=== PATIENT | female | born 1950 | race Caucasian/White ===

== ENCOUNTER 2020-03-19 14:34 | Emergency (ER) | payer MEDICARE ==
[~2020-03-19] VITALS: Ht 149.9 cm; Wt 75.3 kg
--- OUTSIDE RECORDS SUMMARY | ~2020-03-19 | XMS | Encounter Summary ---
Demographics + + + | Address | [address] | | | [place] [address] | + + + | Home Phone | | + + + | Preferred Language | Unknown | + + + | Marital Status | | + + + | Moravian Affiliation | 1001 | + + + | Race | White | + + + | Ethnic Group | Not or | + + + Author + + + | Author | [facility] | | | and [place] | + + + | Organization | [facility] | | | and [place] | + + + | Address | Unknown | + + + | Phone | Unavailable | + + + Support + + + + + | Name | Relationship | Address | Phone | + + + + + | Syed Lanman | ECON | [address] | | | | | [place] | | | | | [address] | | + + + + + Care Team Providers + +------+ + | Care Mud Engineer Name | Role | Phone | + +------+ + PCP | Unavailable | + +------+ + Encounter Details +--------+ + + + + | Date | Type | Department | Care Team | Description | +--------+ + + + + | 09/14/ | Hospital | [facility] | Ivan Blackwell, | Bilateral pulmonary | | 2012 - | Encounter | [facility] | DO [address] | embolism (HCC); | | | | CLINICAL DECISION | [place] [address] | Nonspecific ST-T | | 09/19/ | | [address] | | wave | | 2012 | | [place], [place] | | electrocardiographic | | | | [address] | | changes; Obesity, | | | | [phone] | | unspecified; Urinary | | | | | | tract infection, | | | | | | site not specified; | | | | | | Transient | | | | | | hypotension; | | | | | | Hypoxia; Elevated | | | | | | troponin; Closed | | | | | | left ankle fracture; | | | | | | Acute pulmonary | | | | | | embolism (HCC); | | | | | | Blunt head trauma; | | | | | | Hypotension, | | | | | | unspecified; Syncope | | | | | | and collapse | +--------+ + + + + Social History + +-------+ +--------+------+ | Tobacco Use | Types | Packs/Day | Years | Date | | | | | Used | | + +-------+ +--------+------+ | Never Smoker | | | | | + +-------+ +--------+------+ + + + | Sex Assigned at | Date Recorded | | | | + + + | Not on file | | + + + documented as of this encounter Discharge Summaries Marilyn Steele MD - 09/19/2012 4:29 PM PSTFormatting of this note might be different from th e original. Discharge Summaries by Marilyn Steele MD at 09/19/12 0476 Author: Marilyn Steele MD Service: Hospitalist Author Type: Physician Filed: 09/19/12 5900 Date of Service: 09/19/12 8476 Status: Signed Electrical Journeyman: Marilyn Steele MD (Physician) [facility] Service: Hospitalist Discharge Summary Date of Admission: 09/14/2012 Date of Discharge: 09/19/2012 Discharge Physician: Marilyn Steele MD Treatment Team: Consulting Physician: Anton Napoles MD Admitting Provider: Ivan Blackwell DO Discharge Diagnoses: Principal Problem: *Acute pulmonary embolism Active Problems: Hypotension, unspecified Syncope and collapse Nonspecific ST-T wave electrocardiographic changes Blunt head trauma Obesity, unspecified Urinary tract infection, site not specified Resolved Problems: * No resolved hospital problems. * Procedures: * No surgery found * CT Chest PE Protocol [[id number]] Collected:09/14/122101 Order Status:Completed Updated:09/14/122115 Narrative: LUIZ MALAVE CT CHEST PULMONARY EMBOLISM W CONTRAST 09/14/2012 8:47 PM HISTORY: 61 years. Female. Rule out pulmonary embolus TECHNIQUE: 1.5-mm axial images of the chest were acquired in the arterial phase according to a CT gaurav ography protocol. Coronal CT angiographic MIP reconstructions were performed. IV contrast: 59 mL IsoVue 370 COMPARISON: None. FINDINGS: CT ANGIOGRAM: Note: These findings were discussed with the requesting clinician in the emergency departme by telephone at 2100 hrs. The pulmonary arterial tree is well opacified. Multiple pulmonary emboli are identified as follows: There is near occluding thrombus withi n left and right main pulmonary arteries on the right there is thrombus extending into the p roximal portion of the upper and middle lobe segments with a large amount of thrombus extend ing into the lower lobe artery.. On the left the near occluding thrombus in the left main pulmonary artery with a large volu me of thrombus extending into the left lower lobe branch. 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 No dissection, aneury sm or stenosis is seen in the aorta or great vessels. No aneurysmal dilatation. No evidence of dissection. Cardiomegaly is noted. No pericardial abnormality is seen. No filling defects are seen in t he chambers of the heart to suggest clot or tumor. CT CHEST: The lungs are well aerated. No acute airspace disease, parenchymal nodule, mass, pleural ef fusion or pneumothorax is noted. No bronchiectasis is seen. The thyroid is symmetric and shows no evidence of a solid or cystic mass. No bulky adenopathy is seen in the lower karly stations of the neck, axillary regions, medi astinum or hilar regions. The thoracic esophagus is normal. No hiatal hernia is seen. The muscles of the chest are symmetric. No focal atrophy or soft tissue mass is seen. The osseous structures of the chest do not demonstrate lytic or blastic lesions. In the upper abdomen the visualized portions of the liver, spleen, pancreas, adrenal glands and kidneys are normal in size, position, contour and attenuation. No solid or cystic britni s are seen in these organs. No upper abdominal adenopathy is seen. The visualized portions o f the stomach and small bowel are normal. The patient is status post cholecystectomy. IMPRESSION: 1. Large volume of bilateral pulmonary emboli as described above. The requesting clinician is aware. Ultrasound lower extremity venous doppler bilateral [[id number]] Collected:09/15/12 0935 Orde r Status:Completed Updated:09/15/12 0953 Narrative: LUIZ MALAVE 1950 US LOWER EXTREMITY VENOUS DOPPLER BILAT 09/15/2012 8:15 AM HISTORY: Patient has a known PE with broken fibula, leg pain TECHNIQUE: Bilateral lower extremity venous Doppler performed with color Doppler and spectr al Doppler waveform analysis. COMPARISON: None. FINDINGS: The deep venous system of the right lower extremity is normal on grayscale imagin g with normal compressibility. Normal augmentation is present. The calf vessels are normal. The deep venous system of the left lower extremity is normal on grayscale imaging. In the c custodial, there appears to be absent color flow involving the posterior tibial vein which is nonc ompressible. This extends in the popliteal vein. IMPRESSION: 1. Demonstration of deep venous thrombosis involving the left popliteal vein extending into the posterior tibial. 2. Critical result: Imaging findings discussed with the nurse taking care of the patient by telephone at 9:47 a.m. This is performed within one hour of review of images. head facial without contrast [[id number]] Collected:09/15/12 1218 Order Status:Completed U pdated:09/15/12 1229 Narrative: LUIZ MALAVE CT HEAD FACIAL WO CONTRAST HISTORY: 61 years. Female. Orbit pain. TECHNIQUE: CT examination the head and face was performed without contrast. Coronal and sagittal refor matted images were obtained. COMPARISON: None. FINDINGS: No abnormal areas of increase or decrease density seen throughout the brain. No mass, hemor rhage, midline shift, or extra-axial fluid collection. Tiny mucus retention cyst within the maxillary sinuses and. Bilateral ostiomeatal units are patent. Negative for fracture. The globes are normal and symmetric in size. No intra-or extraconal mass or abnormality. IMPRESSION: 1. Negative CT head without contrast. 2. Tiny mucus retention cyst within the maxillary sinus. Performing Physician: Enrique Mendoza MD INDICATIONS Abnormal EKG CONCLUSIONS 1. Overall left ventricular systolic function is normal with, an EF between 65 - 70 %. 2. The cavity size is decreased. 3. The right ventricle is severely enlarged measuring >4.1 cm. 4. Paradoxical motion of the right ventricular septum is consistent with right ventricular overload and/or elevated right ventricular end-diastolic pressure. 5. Moderate to severe tricuspid regurgitation present. 6. The right ventricular systolic pressure (pulmonary artery systolic pressure), as measure d by Doppler, is between 31.76mmHg and 36.76mmHg. Significant Diagnostic Studies: BRIEF HISTORY OF PRESENTATION: Luiz Malave is a 61 y.o. female who presented with hypotension and found to to have bi lateral PE/left DVT ,refer to H&P and consult note for details . HOSPITAL COURSE: 1 PE: bilateral large with RV dilatation and strain/left DVT completed 5 days of bridging Therapy with heparin gtt initilaly then Lovenox subQ,continue on Coumadin INR goal 2-3 and hold if above 3. 2 positive troponins and history of CAD: appreciate help from cardiology Positi ve troponins from PE. Conservative management for now,she is now chest pain free. 3 hypertension stable.resume home metoprolol on discharge. 4 left ankle fracture: was on conservative Management prior Continue with same follow up o utpatient. 5 right knee pain and mild bruising which is improving she already has an appt with her ort hopedic coming up this week. PT recc wheel chair and walker,she was discharged home in a stable condition and all her qu estions were addrssed, she had accepted anticoagulation risks and side effects Past Medical History Diagnosis Date Hypertension Depression Old myocardial infarction Past Surgical History Procedure Date Cholecystectomy Colonoscopy Tonsillectomy No Known Allergies No prescriptions prior to admission DISCHARGE EXAM Vital Signs: BP 139/76 | Pulse 99 | Temp(Src) 97.9 F (36.6 C) (Oral) | Resp 19 | Ht 1.524 m (5') | W t 87.862 kg (193 lb 11.2 oz) | BMI 37.83 kg/m2 | SpO2 94% | ? No Temp: [97.8 F (36.6 C)-98.9 F (37.2 C)] 97.9 F (36.6 C) (09/19 702) BP: (125-192)/(68-81) 139/76 mmHg (09/19 702) Heart Rate: [97-110] 99 (09/19 702) Resp: [18-20] 19 (09/19 702) SpO2: [93 %-94 %] 94 % (09/19 702) Height: [152.4 cm (5')] 152.4 cm (5') (09/20 355) Weight: [87.862 kg (193 lb 11.2 oz)] 87.862 kg (193 lb 11.2 oz) (09/20 355) BMI (Calculated): [37.9] 37.9 (09/20 355) General appearance: alert, appears stated age and cooperative Neck: no adenopathy, no carotid bruit, no JVD, supple, symmetrical, trachea midline and thy roid not enlarged, symmetric, no tenderness/mass/nodules, neck bruise Lungs: clear to auscultation bilaterally Heart: regular rate and rhythm, S1, S2 normal, no murmur, click, rub or gallop Abdomen: soft, non-tender; bowel sounds normal; no masses, no organomegaly Extremities: extremities normal, atraumatic, no cyanosis or edema, under arm bruises and le g bruises,left ankle fracture and right knee swelling which is improving Pulses: 2+ and symmetric Neurologic: Grossly normal DATA CBC: Lab Results Component Value Date WBC 9.6 09/19/2012 RBC 3.16* 09/19/2012 HGB 9.6* 09/19/2012 HCT 30.6* 09/19/2012 MCV 96.8 09/19/2012 MCH 30.4 09/19/2012 MCHC 31.4* 09/19/2012 RDW 48.1 09/19/2012 PLT 221 09/19/2012 MPV 9.1 09/19/2012 DIFFTYPE AUTOMATED 09/19/2012 CMP: Lab Results Component Value Date NA 143 09/19/2012 K 4.3 09/19/2012 CL 107 09/19/2012 CO2 26 09/19/2012 ANIONGAP 15 09/19/2012 GLUF 82 09/19/2012 BUN 8 09/19/2012 CREATININE 0.98 09/19/2012 BCR 8 09/19/2012 CA 7.9* 09/19/2012 PROT 5.8* 09/15/2012 ALB 2.9* 09/15/2012 BILITOT 0.9 09/15/2012 ALP 101 09/15/2012 AST 137* 09/15/2012 ALT 105* 09/15/2012 EGFR >60 09/19/2012 PT/INR: Lab Results Component Value Date INR 2.2 09/19/2012 Disposition: Home Condition: Stable Code Status: Full Code Discharge Instructions Protime-INR Standing Status: Future Standing Exp. Date: 09/19/13 Ambulatory referral to Anticoagulation Monitoring Referral Priority: Routine Referral Type: Consultation Referral Reason: Specialty Services Required Number of Visits Requested: 1 Diet cardiac Diet low sodium Activity as tolerated Call MD for: temperature >100.4 Call MD for: persistant nausea and vomiting Call MD for: severe uncontrolled pain Call MD for: redness, tenderness, or signs of infection (pain, swelling, redness, odor or green/yellow discharge around incision site) Call MD for: hives Call MD for: difficulty breathing, headache or visual disturbances Call MD for: persistant dizziness or light-headedness Call MD for: extreme fatigue Follow up: Beverly Cardenas, [facility] [address] [address] Schedule an appointment as soon as possible for a visit in 1 week Discharge Medication List as of 09/19/2012 12:08 PM START taking these medications Details omeprazole (PRILOSEC) 20 MG capsule Take 1 capsule by mouth every morning before breakfast ., Starting 09/19/2012, Until Tue09/19/13, Print warfarin (COUMADIN) 5 MG tablet Take 1 tablet by mouth Once daily-Coumadin., Starting 2012, Until Tue09/19/13, Print CONTINUE these medications which have NOT CHANGED Details fluoxetine (PROZAC) 20 MG tablet Take 20 mg by mouth daily. , Until Discontinued, Histori dana Med metoprolol (TOPROL-XL) 50 MG 24 hr tablet Take 50 mg by mouth daily. , Until Discontinued , Historical Med STOP taking these medications aspirin 81 MG EC tablet Comments: Reason for Stopping: famotidine (PEPCID) 10 MG tablet Comments: Reason for Stopping: Discharge took over 30 minutes, to include final examination, discussion of admission, and preparation of prescriptions, instructions for on-going care, follow-up and documentation of discharge summary. Marilyn Steele MD @td documented in this encou nter Progress Notes Conversion Transaction, Provider Unknown - 09/19/2012 10:43 AM PSTFormatting of this note m ight be different from the original. Progress Notes by Guido Cabrera RRT at 09/19/12 104 Author: Guido Cabrera RRT Service: (none) Author Type: Registered Respiratory Therapi st Filed: 09/19/12 1044 Date of Service: 09/19/121042 Status: Signed Electrical Journeyman: Guido Cabrera RRT (Registered Respiratory Therapist) [facility] Department of Respiratory Jail Oxygen Evaluation (Evaluation is valid for 48 hours once completed) Date: 09/19/2012 RT: Guido Cabrera Time: 10:44 AM Home O2 Eval at rest-Part 1 At rest & breathing room air is the patients SpO2 88% or lower? : No Lowest observed SpO2 at rest: 96 percent Home O2 Eval during exercise-Part 2 With exercise & breathing room air is the patients SpO2 88% or lower? : No Lowest observed SpO2 with exercise: 92 percent HOME OXYGEN PROVIDER PREFERENCE PHONE FAX *NOTE* Provider must include liter flow, route of oxygen administration, frequency of use w ith duration of need in months on the prescription AND document patient s diagnosis. OXYGEN PRN IS NOT A VALID ORDER Physician Signature: Date: Time: onver leatha Transaction, Provider Unknown - 09/19/2012 6:26 AM PST Progress Notes by Winifred Roque RN at 09/19/1226 Author: Winifred Roque RN Service: (none) Author Type: Registered Nurse Filed: 09/19/12 0628 Date of Service: 09/19/12625 Status: Signed Electrical Journeyman: Winifred Roque RN (Registered Nurse) VSS. Pt rested through the night. Tolerated sleeping without needing any O2. Pain needs wel l managed by giving the Ultram and Tylenol at different times so she was getting pain medica tions more regularly. She states that her pain has stayed under a 4/10 all night. Uses the B SC with a standby assist. No other acute changes from the previous assessment. Winifred Roque RN 6:28 AM 09/19/2012 onver leatha Transaction, Provider Unknown - 09/18/2012 6:30 PM PST Progress Notes by Maria Esther Woodward RN at 09/18/121829 Author: Maria Esther Woodward RN Service: (none) Author Type: Registered Nurse Filed: 09/18/121830 Date of Service: 09/18/121829 Status: Signed Electrical Journeyman: Maria Esther Woodward RN (Registered Nurse) VSS, afebrile, pt completley weaned from O2. No acute changes, will continue to monitor.EDITH WOODWARD RN Marilyn Mendoza MD - 09/18/2012 4:43 PM PSTFormatting of this note might be different from the origi nal. Progress Notes by Marilyn Steele MD at 09/18/12 164 Author: Marilyn Steele MD Service: Hospitalist Author Type: Physician Filed: 09/18/121648 Date of Service: 09/18/121642 Status: Addendum Electrical Journeyman: Marilyn Steele MD (Physician) Related Notes: Original Note by Marilyn Steele MD (Physician) filed at 09/18/121648 [facility] Service: Hospitalist Progress Note Hospital Day: LOS: 4 days Post-Op Day: * No surgery found * SUBJECTIVE Patient Summary: refer to H&P and previous prog notes Events Overnight: Pt seen and examined,still tachycardic when laying in bed and has e xertional SOB , no signs of active bleeding Scheduled Medications enoxaparin 1 mg/kg Subcutaneous Q12H FLUoxetine 20 mg Oral Daily heparin lock flush omeprazole 20 mg Oral QAM AC potassium chloride 40 mEq Oral Daily with breakfast warfarin 5 mg Oral Daily DISCONTD: cephALEXin 500 mg Oral Q12H DISCONTD: ciprofloxacin 500 mg Oral BIDQ DISCONTD: heparin (porcine) 80 Units/kg Intravenous Once Continuous Infusions PRN Medications acetaminophen, acetaminophen, traMADol OBJECTIVE Vital Signs: BP 135/67 | Pulse 107 | Temp(Src) 97.8 F (36.6 C) (Oral) | Resp 20 | Ht 1.499 m (4' 11" ) | Wt 92.9 kg (204 lb 12.9 oz) | BMI 41.37 kg/m2 | SpO2 93% | ? No Temp: [97.8 F (36.6 C)-98.5 F (36.9 C)] 97.8 F (36.6 C) (09/18 1504) BP: (121-140)/(61-71) 135/67 mmHg (09/18 1504) Heart Rate: [92-110] 107 (09/18 1504) Resp: [20] 20 (09/18 1504) SpO2: [93 %-96 %] 93 % (09/18 1504) Weight: [92.9 kg (204 lb 12.9 oz)] 92.9 kg (204 lb 12.9 oz) (09/17 2017) General appearance: alert, appears stated age and cooperative Neck: no adenopathy, no carotid bruit, no JVD, supple, symmetrical, trachea midline and thy roid not enlarged, symmetric, no tenderness/mass/nodules, neck bruise Lungs: clear to auscultation bilaterally Heart: regular rate and rhythm, S1, S2 normal, no murmur, click, rub or gallop Abdomen: soft, non-tender; bowel sounds normal; no masses, no organomegaly Extremities: extremities normal, atraumatic, no cyanosis or edema, under arm bruises and le g bruises,left ankle fracture and right knee swelling which is improving Pulses: 2+ and symmetric Neurologic: Grossly normal DATA CBC: Lab Results Component Value Date WBC 8.4 09/18/2012 RBC 3.09* 09/18/2012 HGB 9.3* 09/18/2012 HCT 29.7* 09/18/2012 MCV 96.2 09/18/2012 MCH 30.3 09/18/2012 MCHC 31.5* 09/18/2012 RDW 45.5 09/18/2012 PLT 175 09/18/2012 MPV 9.0 09/18/2012 DIFFTYPE AUTOMATED 09/18/2012 CMP: Lab Results Component Value Date NA 143 09/18/2012 K 3.4* 09/18/2012 CL 108 09/18/2012 CO2 26 09/18/2012 ANIONGAP 12 09/18/2012 GLUF 89 09/18/2012 BUN 10 09/18/2012 CREATININE 0.93 09/18/2012 BCR 11 09/18/2012 CA 8.0* 09/18/2012 PROT 5.8* 09/15/2012 ALB 2.9* 09/15/2012 BILITOT 0.9 09/15/2012 ALP 101 09/15/2012 AST 137* 09/15/2012 ALT 105* 09/15/2012 EGFR >60 09/18/2012 Lab Results Component Value Date INR 3.0 09/18/2012 INR 1.8 09/17/2012 INR 1.3 09/16/2012 urine cx <10,000 CFU/ML MIXED GRAM POSITIVE AND GRAM NEGATIVE RENE NO SUSCEPTIBILITY TO FO LLOW PROBLEM LIST Principal Problem: *Acute pulmonary embolism Active Problems: Hypotension, unspecified Syncope and collapse Nonspecific ST-T wave electrocardiographic changes Blunt head trauma Obesity, unspecified Urinary tract infection, site not specified ASSESSMENT & PLAN 1 PE: bilateral large with RV dilatation and strain, . Will c/w Lovenox and continued Couma din. Due to high volume PE, we'll keep the patient in hospital until INR complete therapeuti c and the plan for at least 5 days of Lovenox bridging. 2 positive troponins and history of CAD: appreciate help from cardiology. Positive troponin s from PE. Conservative management for now. 3 hypertension stable. Holding BP meds for now as was hypotensive on presentation. 4 left ankle fracture: was on conservative Management. Continue with same followup outpatie nt. 5 right knee pain and mild bruising if any worsening will consult ortho inpatient. 6 UTI: dc abx urine cx suggest contamination 7GI px PPI Hypokalemia replete orally Plan on dc in AM Disposition: Admitted Code Status: Full Code Marilyn Steele MD 09/18/2012 onversion Transaction, Provider Unknown - 09/18/2012 4:39 PM PSTFormatting of this note might be different from darío jacobs original. Progress Notes by CHICHO Arellano at 09/18/12 7659 Author: CHICHO Arellano Service: (none) Author Type: V Belt Builder Filed: 09/18/12 1640 Date of Service: 09/18/12 4850 Status: Signed Electrical Journeyman: CHICHO Arellano (V Belt Builder) CM followed up with [facility] for INR following with patient's PCP: IVANA Ulrich. They agreed to do the following and an appointment has been scheduled for , M arch 7 at 2.00 PM with Labs prior. onver leatha Transaction, Provider Unknown - 09/18/2012 12:54 PM PST Progress Notes by Karie Jiang RN at 09/18/12 1258 Author: Karie Jiang RN Service: (none) Author Type: Registered Nurse Filed: 09/18/12 1490 Date of Service: 09/18/121253 Status: Signed Electrical Journeyman: Karie Jiang RN (Registered Nurse) Visited patient for coumadin education. Discussed her indications for coumadin and need for compliance. Emphasized importance of inr monitoring. Discussed potential food/medication in teractions. Education booklet given. She is from [place] and will need discharge plan clos e to home. CM referral made. Karie Jiang RN a/c onver leatha Transaction, Provider Unknown - 09/18/2012 5:34 AM PST Progress Notes by Elsa Hemphill RN at 09/18/12 0534 Author: Elsa Hemphill RN Service: (none) Author Type: Registered Nurse Filed: 09/18/12 0536 Date of Service: 09/18/12 0534 Status: Signed Electrical Journeyman: Elsa Hemphill RN (Registered Nurse) No changes from assessment. Pt.'s pain is well controlled with the ultram. Vital signs ar e stable. Will continue monitor. onver leatha Transaction, Provider Unknown - 09/17/2012 7:35 PM PST Progress Notes by Maria Esther Woodward RN at 09/17/12 6234 Author: Maria Esther Woodward RN Service: (none) Author Type: Registered Nurse Filed: 09/17/121938 Date of Service: 09/17/121934 Status: Signed Electrical Journeyman: Maria Esther Woodward RN (Registered Nurse) VSS, afebrile, pt weaned to 0.5 liter O2 via nasal cannula. PT is having increased discomfo rt in legs and arms r/t to fall, pt requests pain medication with no sedative effect. Receiv ed new orders from MD for Ultram, Will continue to monitor.MARIA ESTHER WOODWARD RN onver leatha Transaction, Provider Unknown - 09/17/2012 2:56 PM PST Progress Notes by CHICHO Seras at 09/17/12 3286 Author: CHICHO Sears Service: (none) Author Type: V Belt Builder Filed: 09/17/12 1501 Date of Service: 09/17/121455 Status: Signed Electrical Journeyman: CHICHO Sears (V Belt Builder) LOAN UNDERWRITER met w/ Pt for DCP. Pt resides in [place], will be going home with Coumadin, this is n ew, Pt needs to find a doctor to follow. Pt has PCP Beverly HEATH [phone] ph at the [facility] [place], they are not open on Sundays, needs p/c on Monday 09/18, if they will follow. Pt is on nasal cannula oxygen, this is new, if she needs it, she would prefer [facility] [place] phone for home oxygen. Pt states Pt parents (Zachariah Reyes [phone]) will transport Pt home when ready. onver leatha Transaction, Provider Unknown - 09/17/2012 12:46 PM PST Progress Notes by Maria Esther Woodward RN at 09/17/12 8676 Author: Maria Esther Woodward RN Service: (none) Author Type: Registered Nurse Filed: 09/17/12 1248 Date of Service: 09/17/12 1246 Status: Signed Electrical Journeyman: Maria Esther Woodward, RN (Registered Nurse) Pt provided with coumadin and Lovenox written information.MARIA ESTHER WOODWARD RN Ty Wu MD - 09/17/2012 11:05 AM PSTFormatting of this note might be different from the origi nal. Progress Notes by Ty Rizo MD at 09/17/12 1105 Author: Ty Rizo MD Service: (none) Author Type: Physician Filed: 09/17/12 1110 Date of Service: 09/17/12 1105 Status: Signed Electrical Journeyman: Ty Rizo MD (Physician) [facility] Service: Hospitalist Progress Note Hospital Day: LOS: 3 days Consultants: Treatment Team: Consulting Physician: Anton Napoles MD Admitting Provider: Ivan Blackwell DO SUBJECTIVE Events Overnight: *feels okay this morning, mild chest pain on deep breathing but oth erwise able to ambulate somewhat. Scheduled Medications ciprofloxacin 500 mg Oral BIDQ enoxaparin 1 mg/kg Subcutaneous Q12H FLUoxetine 20 mg Oral Daily heparin (porcine) 80 Units/kg Intravenous Once omeprazole 20 mg Oral QAM AC sodium phosphate 30 mmol Intravenous Once warfarin 5 mg Oral Daily Continuous Infusions PRN Medications acetaminophen, acetaminophen OBJECTIVE Vital Signs: BP 119/58 | Pulse 90 | Temp(Src) 98.2 F (36.8 C) (Oral) | Resp 18 | Ht 1.499 m (4' 11") | Wt 94.8 kg (208 lb 15.9 oz) | BMI 42.21 kg/m2 | SpO2 98% Filed Vitals: 09/16/12 1954 09/16/12 2356 09/17/12 0424 09/17/12 0709 BP: 114/58 107/50 130/59 119/58 Pulse: 93 93 90 90 Temp: 98.1 F (36.7 C) 97.8 F (36.6 C) 97.9 F (36.6 C) 98.2 F (36.8 C) TempSrc: Oral Oral Oral Oral Resp: 20 20 20 18 Height: Weight: 94.8 kg (208 lb 15.9 oz) SpO2: 95% 97% 98% 98% Intake/Output Summary (Last 24 hours) at 09/17/12 1105 Last data filed at 09/17/12 1027 Gross per 24 hour Intake 545.56 ml Output 1100 ml Net -554.44 ml General: Well nourished. Psych: Alert and oriented x 3. Calm, cooperative. Cardiovascular: Regular rate and rhythm, no murmurs, no thrills. Normal PMI. Respiratory: Clear to auscultation, no wheezing or crackles, breathing non labored. Gastrointestinal: Soft, non-tender, non-distended, positive bowel sounds. No HSM. Musculoskeletal: right knee swelling and mild edema. Left ankle tenderness. No edema in bi lateral lower extremities. No joint swelling. Skin: bruising of the chin and left side of tongue. Warm and dry, no rashes. Neck: No JVD, Trachea midline. Neurological: Non focal. Motor grossly intact. DATA CBC: Lab Results Component Value Date WBC 12.5* 09/17/2012 RBC 3.34* 09/17/2012 HGB 10.3* 09/17/2012 HCT 32.2* 09/17/2012 MCV 96.4 09/17/2012 MCH 30.9 09/17/2012 MCHC 32.0 09/17/2012 RDW 48.1 09/17/2012 PLT 200 09/17/2012 MPV 9.1 09/17/2012 DIFFTYPE AUTOMATED 09/17/2012 CMP: Lab Results Component Value Date NA 143 09/17/2012 K 3.7 09/17/2012 CL 110* 09/17/2012 CO2 23 09/17/2012 ANIONGAP 13 09/17/2012 GLUF 94 09/17/2012 BUN 13 09/17/2012 CREATININE 1.03* 09/17/2012 BCR 13 09/17/2012 CA 8.1* 09/17/2012 PROT 5.8* 09/15/2012 ALB 2.9* 09/15/2012 BILITOT 0.9 09/15/2012 ALP 101 09/15/2012 AST 137* 09/15/2012 ALT 105* 09/15/2012 EGFR 58* 09/17/2012 Magnesium: Lab Results Component Value Date MG 2.0 09/17/2012 Phosphorus: Lab Results Component Value Date PHOS 1.9* 09/17/2012 PT/INR: Lab Results Component Value Date INR 1.8 09/17/2012 PTT: Lab Results Component Value Date APTT >240* 09/16/2012 [APTT PROBLEM LIST Principal Problem: *Acute pulmonary embolism Active Problems: Hypotension, unspecified Syncope and collapse Nonspecific ST-T wave electrocardiographic changes Blunt head trauma Obesity, unspecified ASSESSMENT/ PLAN 61-year-old female admitted for chest pain found to have bilateral large PE, admitted to U now transfer to medical floor. #1 PE: bilateral large with RV dilatation and strain, did not get TPA. Will c/w Lovenox and continued Coumadin. Presently stable in terms of blood pressure and heart rate, on nasal ca nnula. We'll continue central line for one more day. Echo reviewed. Will get anti-coagulatio n consult. Due to high volume PE, we'll keep the patient in hospital until INR complete therapeutic an d the plan for at least 5 days of Lovenox bridging. #2 positive troponins and history of CAD: appreciate help from cardiology. Positive troponi ns from PE. Conservative management for now. #3 hypertension stable. Holding BP meds for now as was hypotensive on presentation. #4 left ankle fracture: was on conservative Management. Continue with same followup outpat ient. #5 right knee pain and mild bruising: no suspect hematoma at this point but will monitor cl osely. Unchanged from yesterday. #6 UTI: will start patient on Cipro. Follow up urine culture. Never had a James catheter Will get PT today. Telemetry: Required. James: Not Required. DVT: On heparin/ lovenox SQ Disposition: Will be in patient for 1-2 more days. Might need home O2. Code Status: Full Code Ty Rizo MD 09/17/201211:05 AM onversion Transaction, Provider Unknown - 09/17/2012 4:47 AM PSTFormatting of this note might be different from th e original. Progress Notes by Kayla Leija RN at 09/17/12446 Author: Kayla Leija RN Service: (none) Author Type: Registered Nurse Filed: 09/17/12 0456 Date of Service: 09/17/12446 Status: Signed Electrical Journeyman: Kayla D Leija, RN (Registered Nurse) VSS overnight. Pt medicated with Tylenol for generalized pain X 2. Pt states relief. No acu te changes in assessment. Ty Wu MD - 09/16/2012 9:31 AM PSTFormatting of this note might be different from the origi nal. Progress Notes by Ty Rizo MD at 09/16/12930 Author: Ty Rizo MD Service: (none) Author Type: Physician Filed: 09/16/12 1004 Date of Service: 09/16/12930 Status: Signed Electrical Journeyman: Ty Rizo MD (Physician) [facility] Service: Hospitalist Progress Note Hospital Day: LOS: 2 days Consultants: Treatment Team: Consulting Physician: Anton Napoles MD Admitting Provider: Ivan Blackwell DO SUBJECTIVE Events Overnight: *feels okay this morning, mild chest pain on deep breathing but oth erwise able to ambulate somewhat. Scheduled Medications famotidine 20 mg Oral BID Or famotidine 20 mg Intravenous BID FLUoxetine 20 mg Oral Daily heparin (porcine) 80 Units/kg Intravenous Once pneumococcal 23-valent vaccine 0.5 mL Intramuscular Once Immunization warfarin 5 mg Oral Daily DISCONTD: docusate 100 mg Oral BID Continuous Infusions heparin in D5W 50 units/mL 6 Units/kg/hr (09/16/12 0913) DISCONTD: norepinephrine in D5W 64 mcg/mL DISCONTD: sodium chloride 110 mL/hr at 09/15/12 0759 PRN Medications acetaminophen, acetaminophen, heparin (porcine), heparin (porcine), DISCONTD: magnesium sul fate, DISCONTD: magnesium sulfate, DISCONTD: magnesium sulfate, DISCONTD: potassium chloride , DISCONTD: potassium chloride, DISCONTD: potassium chloride, DISCONTD: sodium phosphate IVP B 20 mmol, DISCONTD: sodium phosphate IVPB 45 mmol OBJECTIVE Vital Signs: BP 120/59 | Pulse 86 | Temp(Src) 97.8 F (36.6 C) (Oral) | Resp 16 | Ht 1.499 m (4' 11") | Wt 97.1 kg (214 lb 1.1 oz) | BMI 43.24 kg/m2 | SpO2 99% Filed Vitals: 09/15/12 2337 09/15/12 2348 09/16/12 0344 09/16/12 0817 BP: 143/56 107/53 120/59 Pulse: 90 85 86 Temp: 97.5 F (36.4 C) 97.8 F (36.6 C) TempSrc: Oral Oral Resp: 18 18 16 Height: Weight: 97.1 kg (214 lb 1.1 oz) SpO2: 97% 97% 99% Intake/Output Summary (Last 24 hours) at 09/16/12 0931 Last data filed at 09/16/12 0658 Gross per 24 hour Intake 1234 ml Output 650 ml Net 584 ml General: Well nourished. Psych: Alert and oriented x 3. Calm, cooperative. Cardiovascular: Regular rate and rhythm, no murmurs, no thrills. Normal PMI. Respiratory: Clear to auscultation, no wheezing or crackles, breathing non labored. Gastrointestinal: Soft, non-tender, non-distended, positive bowel sounds. No HSM. Musculoskeletal: right knee swelling and mild mild edema. Left ankle tenderness. No edema in bilateral lower extremities. No joint swelling. Skin: bruising of the chin and left side of tongue. Warm and dry, no rashes. Neck: No JVD, Trachea midline. Neurological: Non focal. Motor grossly intact. DATA CBC: Lab Results Component Value Date WBC 11.3* 09/16/2012 RBC 3.42* 09/16/2012 HGB 10.5* 09/16/2012 HCT 32.7* 09/16/2012 MCV 95.5 09/16/2012 MCH 30.6 09/16/2012 MCHC 32.0 09/16/2012 RDW 47.3 09/16/2012 PLT 183 09/16/2012 MPV 8.8 09/16/2012 DIFFTYPE AUTOMATED 09/16/2012 CMP: Lab Results Component Value Date NA 138 09/16/2012 K 3.9 09/16/2012 CL 108 09/16/2012 CO2 20* 09/16/2012 ANIONGAP 14 09/16/2012 GLUF 92 09/16/2012 BUN 16 09/16/2012 CREATININE 0.97 09/16/2012 BCR 16 09/16/2012 CA 8.0* 09/16/2012 PROT 5.8* 09/15/2012 ALB 2.9* 09/15/2012 BILITOT 0.9 09/15/2012 ALP 101 09/15/2012 AST 137* 09/15/2012 ALT 105* 09/15/2012 EGFR >60 09/16/2012 Magnesium: Lab Results Component Value Date MG 2.3 09/16/2012 Phosphorus: Lab Results Component Value Date PHOS 2.3 09/16/2012 PT/INR: Lab Results Component Value Date INR 1.3 09/16/2012 PTT: Lab Results Component Value Date APTT >240* 09/16/2012 [APTT PROBLEM LIST Principal Problem: *Acute pulmonary embolism Active Problems: Hypotension, unspecified Syncope and collapse Nonspecific ST-T wave electrocardiographic changes Blunt head trauma Obesity, unspecified ASSESSMENT/ PLAN 61-year-old female admitted for chest pain found to have bilateral large PE, now transfer t o medical floor. #1 PE: bilateral large with RV dilatation and strain, did not get TPA. Will change IV hepar in to Lovenox and continued Coumadin. Presently stable in terms of blood pressure and heart rate, on nasal cannula. Strict bedrest for today. We'll continue central line for one more d ay. Echo reviewed. Will get anti-coagulation consult. But we'll keep the patient in hospital until INR complete therapeutic and the plan for at l east 5 days of Lovenox bridging. #2 positive troponins and history of CAD: appreciate help from cardiology. Positive troponi ns from PE. Conservative management for now. #3 hypertension stable #4 left ankle fracture: was on conservative Management. Continue with same followup outpat ient. #5 right knee pain and mild bruising: no suspect hematoma at this point but will monitor cl osely. Will get PT from tomorrow. Telemetry: Required. James: Not Required. DVT: On heparin/ lovenox SQ Disposition: Will be in patient for 2-3 days. Code Status: Full Code Ty Rizo MD 09/16/20129:31 AM onversion Transaction, Provider Unknown - 09/15/2012 9:54 PM PSTFormatting of this note might be different from darío jacobs original. Progress Notes by Kayla Leija RN at 09/15/122153 Author: Kayla Leija RN Service: (none) Author Type: Registered Nurse Filed: 09/15/122157 Date of Service: 09/15/122153 Status: Signed Electrical Journeyman: Kayla Leija RN (Registered Nurse) Dr. Guy notified of critical lab value of aptt >240. Per MD stop heparin gtt for 3 hours, then decrease rate by 3 units/kg/hr. Heparin gtt stopped at 2147. Will resume drip at 0047. onver leatha Transaction, Provider Unknown - 09/15/2012 6:41 PM PST Progress Notes by Ibis Maldonado RN at 09/15/121840 Author: Ibis Maldonado RN Service: (none) Author Type: Registered Nurse Filed: 09/15/121941 Date of Service: 09/15/121840 Status: Signed Electrical Journeyman: Ibis Maldonado RN (Registered Nurse) Report called to LAITH Candelaria. Pt transferred to [place] [address] via w/c and accompanied by this RN an [place]lotte NT. VSS. Assessment unchanged. IBIS MALDONADO RN onver leatha Transaction, Provider Unknown - 09/15/2012 6:21 PM PST Progress Notes by Kitty Wiggins at 09/15/121820 Author: Kitty Wiggins Service: (none) Author Type: Filed: 09/15/121832 Date of Service: 09/15/121820 Status: Signed Electrical Journeyman: Kitty Wiggins () I checked in with the pt and her family. Luiz was delighted that she would get to try to ea t for the first time in a couple of days. They family was in a celebrative space at time of this visit. I rejoiced with them and let them know of chaplains availability in the future. Chaplain Kitty Wiggins onver leatha Transaction, Provider Unknown - 09/15/2012 5:56 AM PST Progress Notes by Orlando Beckman RPH at 09/15/12555 Author: Orlando Beckman RPH Service: (none) Author Type: Pharmacist Filed: 09/15/1256 Date of Service: 09/15/12555 Status: Signed Electrical Journeyman: Orlando Beckman RPH (Pharmacist) Clinical Pharmacy Note: Renal Monitoring Luiz Malave 61 y.o. female Ht Readings from Last 1 Encounters: 09/14/12 1.499 m (4' 11") Wt Readings from Last 1 Encounters: 09/14/12 89.2 kg (196 lb 10.4 oz) CREATININE Date Value Range Status 09/15/2012 0.84 0.50 - 1.00 mg/dL Final [place] [facility] [place] [place] [address];[place] [address] Creatinine clearance cannot be calculated - Unknown ideal weight. Pharmacy dosing for renal function per Dr. Blackwell. Currently, there are no medications needing to be adjusted. Pharmacy will continue to monit or for changes in medication orders and in renal function and adjust accordingly. Orlando Beckman RPh 09/15/2012 5:56 AM docume nted in this encounter H&P Notes Ivan Blackwell DO - 09/15/2012 3:47 AM PSTFormatting of this note might be different f rom the original. H&P by Ivan Blackwell DO at 09/15/12 0347 Author: Ivan Blackwell DO Service: (none) Author Type: Manager Law Filed: 09/15/12 0433 Date of Service: 09/15/12346 Status: Signed Electrical Journeyman: Ivan Blackwell DO (Physician) [facility] Service: Manager Law Admission History & Physical Luiz Malave 61 y.o. Date of Admission: 09/14/2012 Requesting Physician: Christine, Emergency Department Indication for ICU Admission: hypotension and Large Pulmonary Embolus History Obtained From: patient CHIEF COMPLAINT: Chief Complaint Patient presents with Hypotension HISTORY OF PRESENT ILLNESS The patient is a 61 y.o. female with significant past medical history of hypertension and r ecent fracture of left ankle who was brought to ED by [facility] from [facility] for possible [place]. She had an un witnessed syncopal event at work today. 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 Pt apparently woke up finding herself face down on t he ground. [place] short of breath, nauseated, and weak. No chest pain. She called 911 and was taken to the nearest facility. She denies any chest pain or nausea. She has chronic swelling of both legs but has not felt any pain. Recent ankle fx approximately 2 weeks ago after tri pping and falling off of a curb--mechanical error and not syncopal event. Developed hypotension en route from OSH and placed on Dopamine. This was discontinued shor tly in ED after fluids given. Asutely, the ED physician here read ECG and felt that this was not cardiac (EKG from showed ST depressions laterally), but rather possible PE. At stat CT with angio revealed large bi-arterial pulmonary embolism. She was started on a heparin drip. At OSH was started on ASA. Currently, patient is without complaint except for mild malaise. No headache, CP, dyspnea, Parvor Mortis, abdominal pain, N-V. No visual changes. Pt did strike left eye on fall. No reported seizure, no back pain. Wears a removable cast/splint on left leg REVIEW OF SYSTEMS A comprehensive review of systems was negative except for: Constitutional: positive for mal aise PAST MEDICAL HISTORY: Past Medical History Diagnosis Date Hypertension Old myocardial infarction Pulmonary embolism PAST SURGICAL HISTORY: Past Surgical History Procedure Date Cholecystectomy Colonoscopy Tonsillectomy Immunizations: Influenza: Indicated for current flu vaccination season Pneumoccocal: Indicated for current flu vaccination season MEDICATION ALLERGIES: No Known Allergies MEDICATIONS PRIOR TO ADMISSION: Prescriptions prior to admission Medication Sig Dispense Refill aspirin 81 MG EC tablet Take 81 mg by mouth daily. famotidine (PEPCID) 10 MG tablet Take 20 mg by mouth daily. fluoxetine (PROZAC) 20 MG tablet Take 20 mg by mouth daily. metoprolol (TOPROL-XL) 50 MG 24 hr tablet Take 50 mg by mouth daily. FAMILY HISTORY OF SIGNIFICANCE: History reviewed. No pertinent family history. SOCIAL HISTORY: History Social History Marital Status: Spouse Name: N/A Number of Children: N/A Years of Education: N/A Occupational History Not on file. Social History Main Topics Smoking status: Never Smoker Smokeless tobacco: Not on file Alcohol Use: No Drug Use: No Sexually Active: Other Topics Concern Not on file Social History Narrative No narrative on file PHYSICAL EXAM Vital Signs: BP 128/70 | Pulse 88 | Temp(Src) 98 F (36.7 C) (Oral) | Resp 16 | Ht 1.499 m (4' 11") | Wt 89.2 kg (196 lb 10.4 oz) | BMI 39.72 kg/m2 | SpO2 97% Temp: [98 F (36.7 C)-98.2 F (36.8 C)] 98 F (36.7 C) (09/14 2299) BP: (109-163)/(66-97) 128/70 mmHg (09/15 299) Heart Rate: [88-120] 88 (09/15 299) Resp: [16] 16 (09/14 2299) SpO2: [94 %-100 %] 97 % (09/15 299) Height: [149.9 cm (4' 11")-152.4 cm (5')] 149.9 cm (4' 11") (09/14 2299) Weight: [86.183 kg (190 lb)-89.2 kg (196 lb 10.4 oz)] 89.2 kg (196 lb 10.4 oz) (09/14 2299 ) BMI (Calculated): [37.2-39.8] 39.8 (09/14 2299) I&O Current Shift: 09/14 1899 - 09/15 658 In: - Out: 275 [Urine:275] I&O Last 3 Shifts: CVC Triple Lumen 09/15/12 Left Internal jugular (Active) Site Assessment Clean;Dry;Intact 09/15/2012 1:00 AM Proximal Lumen Status Blood return noted;Flushed;Normal saline locked 09/15/2012 1:00 AM Medial Lumen Status Blood return noted;Flushed;Normal saline locked 09/15/2012 1:00 AM Distal Lumen Status Blood return noted;Flushed;Normal saline locked 09/15/2012 1:00 AM Dressing Type Anti microbial patch;Transparent 09/15/2012 1:00 AM Dressing Status Clean;Dry;Intact 09/15/2012 1:00 AM Dressing Intervention Initial dressing 09/15/2012 1:00 AM Dressing Change Due 09/21/12 09/15/2012 1:00 AM Peripheral IV 09/14/12 Left Antecubital (Active) Site Assessment Clean;Dry;Intact 09/14/2012 11:00 PM Line Status/Care Blood return noted;Flushed;Infusing 09/14/2012 11:00 PM Dressing Type Transparent 09/14/2012 11:00 PM Dressing Status Clean;Dry;Intact 09/14/2012 11:00 PM EXAM Vitals in ED: 128/60, 105, afebrile, SaO2 94% on NC, RR 22 GEN: Awake, alert, oriented x3, NAD, non-intubated, obese appearing NEURO: PERRLA, EOMI, no facial asymmetry, speech normal, moves all extremities well GCS: 15 HEENT: sclerae clear, nonicteric, oral mmm, pink, no exudates. Left eye mild lali-orbital e cchymosis. No deformity. NECK: supple, trachea midline, No jvd, non-tender, no deformity HEART: RR2, slightly tachycardic , no murmur, rub or gallop: Bedside echo shows mild RV dil ation, IVC non-compressible LUNGS: clear b/l, no wheezing, crackles or rhonchi ABD: soft, nondistended, nontender to palpation, no masses EXTR: Marked edema Left>Right. Left calf > Right, No clubbing or cyanosis. No ankle deform ity SKIN: warm, dry, no rash or mottling; no e/o skin breakdown Pulses: 2/2 upper and lower extremity Filed Vitals: 09/15/12 0300 BP: 128/70 Pulse: 88 Temp: Resp: SpO2: 97% DATA CBC: Lab Results Component Value Date WBC 12.4* 09/15/2012 RBC 3.94 09/15/2012 HGB 12.0 09/15/2012 HCT 37.8 09/15/2012 MCV 96.0 09/15/2012 MCH 30.5 09/15/2012 MCHC 31.8* 09/15/2012 RDW 44.6 09/15/2012 PLT 206 09/15/2012 MPV 8.3 09/15/2012 DIFFTYPE AUTOMATED 09/15/2012 CMP: Lab Results Component Value Date NA 143 09/15/2012 K 4.2 09/15/2012 CL 113* 09/15/2012 CO2 22* 09/15/2012 ANIONGAP 12 09/15/2012 GLUF 115* 09/15/2012 BUN 15 09/15/2012 CREATININE 0.84 09/15/2012 BCR 18 09/15/2012 CA 7.4* 09/15/2012 PROT 5.8* 09/15/2012 ALB 2.9* 09/15/2012 BILITOT 0.9 09/15/2012 ALP 101 09/15/2012 AST 137* 09/15/2012 ALT 105* 09/15/2012 EGFR >60 09/15/2012 BMP: Lab Results Component Value Date NA 143 09/15/2012 K 4.2 09/15/2012 CL 113* 09/15/2012 CO2 22* 09/15/2012 ANIONGAP 12 09/15/2012 GLUF 115* 09/15/2012 BUN 15 09/15/2012 CREATININE 0.84 09/15/2012 BCR 18 09/15/2012 CA 7.4* 09/15/2012 EGFR >60 09/15/2012 Ammonia: No results found for this basename: AMMONIA Magnesium: Lab Results Component Value Date MG 1.7 09/15/2012 Phosphorus: Lab Results Component Value Date PHOS 2.9 09/15/2012 PT/INR: Lab Results Component Value Date INR 1.2 09/15/2012 PTT: Lab Results Component Value Date APTT >240* 09/15/2012 [APTT Troponin: Lab Results Component Value Date TROPONINI 3.92* 09/15/2012 CPK: Lab Results Component Value Date CKTOTAL 149 09/15/2012 CKMB: Lab Results Component Value Date CKMB 13.8* 09/15/2012 U/A: Lab Results Component Value Date COLORU YELLOW 09/14/2012 CLARITYU CLEAR 09/14/2012 MEROPENEM 1.020 09/14/2012 LEUKOCYTESUR NEGATIVE 09/14/2012 NITRITE NEGATIVE 09/14/2012 UROBILINOGEN 0.2 09/14/2012 PHUR 5.5 09/14/2012 BLOODU TRACE* 09/14/2012 KETONES NEGATIVE 09/14/2012 BILIRUBINUR NEGATIVE 09/14/2012 GLUCOSEU NEGATIVE 09/14/2012 ABG: No results found for this basename: POCTEMP, POCFIO2, POCPH, POCPCO, POCPO2, POCHCO, POCTCO 2, POCBD, BEART, POCSO2, POCCMT TSH: Lab Results Component Value Date TSH 1.87 09/15/2012 EKG: I have reviewed the EKG with the following interpretation: lateral ST changes with ta chycardia. Minimal S and Q wave in lead I and III respectively Medical Record Review: Done and compared Radiology Review: CXR: normal and CVC in SVC. No pneumothorax CT Scan torso: Large clot in Right and left Pulmonary artery PROBLEM LIST Principal Problem: *Acute pulmonary embolism Active Problems: Hypotension, unspecified Syncope and collapse Nonspecific ST-T wave electrocardiographic changes Blunt head trauma Obesity, unspecified ASSESSMENT & PLAN NEURO: No active issues. Negative neurologic exam despite head injury. Will perform Ct of head in light of ecchymosis around left orbit with patient on heparin. Follow neuro exam CARDIOVASCULAR: Pt does not have significant R heart dysfunction although slightly dilated. Will obtain formal echo Watch in ICU for compromise Troponin elevation secondary to acute PE Hold metoprolol for now PULMONARY: Pt has acute PE. Will need at least 3-6 months of therapy. Extended if consistent risks such as immobilization occur GI: No active issues. Follow supportively RENAL: Follow Creatinine and adjust meds for GFR. Pt had contrast but does not have DM as risk factor for contrast induced nephropathy INFECTIOUS DISEASE: No active issues. Urine is contaminated HEME: Pt. Started on Heparin drip in ED. Will complete bag and have started warfarin as well. Candidate for subcutaneous lovenox ENDOCRINE: No active issue. Will check TSH MUSCULOSKELETAL: DVT screen of lower extremities to asses clot burden. May need local TPA Obtain xray of ankle to evaluate deformity. Orthopedic follow up as needed PROPHYLAXIS: Stress ulcer prophylaxis: Required while on anticoagulation DVT prophylaxis: On full dose therapy Disposition: ICU admission, stable but guarded Code Status: Full Code Primary Care Physician: IVANA MANTILLA *Please bill 65 minutes of critical care time spent evaluating the patient, reviewing the d dann and formulating a plan exclusive of all other procedures. IVAN BLACKWELL DO FCCP 09/15/2012 3:47 AM documente d in this encounter Procedure Notes Ivan Blackwell DO - 09/15/2012 2:29 AM PSTFormatting of this note might be different f rom the original. Procedures by Ivan Blackwell DO at 09/15/12228 Author: Ivan Blackwell DO Service: (none) Author Type: Manager Law Filed: 09/15/12230 Date of Service: 09/15/12228 Status: Signed Electrical Journeyman: Ivan Blackwell DO (Physician) Procedure Orders: 1. Central line [[id number]] ordered by Ivan Blackwell DO at 09/15/12228 Post-procedure Diagnoses: 1. Bilateral pulmonary embolism (HCC) [415.19] 2. Transient hypotension [796.3] 3. Hypoxia [799.02] 4. Elevated troponin [790.6] [facility] Service: Manager Law BEDSIDE PROCEDURE NOTE Central Line Date/Time: 09/15/2012 2:29 AM Performed by: IVAN BLACKWELL Authorized by: IVAN BLACKWELL Consent: Verbal consent obtained. Written consent obtained. Risks and benefits: risks, benefits and alternatives were discussed Consent given by: patient Patient understanding: patient states understanding of the procedure being performed Patient consent: the patient's understanding of the procedure matches consent given Imaging studies: imaging studies available Required items: required blood products, implants, devices, and special equipment available Patient identity confirmed: verbally with patient, provided demographic data, arm band and hospital-assigned identification number Time out: Immediately prior to procedure a "time out" was called to verify the correct maritza ent, procedure, equipment, desktop support associate and site/side marked as required. Indications: vascular access Anesthesia: local infiltration Anesthetic total: 4 ml Patient sedated: no Preparation: skin prepped with 2% chlorhexidine Skin prep agent dried: skin prep agent completely dried prior to procedure Sterile barriers: all five maximum sterile barriers used - cap, mask, sterile gown, sterile gloves, and large sterile sheet Hand hygiene: hand hygiene performed prior to central venous catheter insertion Location details: left internal jugular Patient position: flat Catheter type: triple lumen Pre-procedure: landmarks identified Ultrasound guidance: yes Number of attempts: 1 Successful placement: yes Post-procedure: line sutured and dressing applied Assessment: blood return through all parts, free fluid flow, no pneumothorax on x-ray and p lacement verified by x-ray Patient tolerance: Patient tolerated the procedure well with no immediate complications. Comments: Placement verified by ultrasound and xray IVAN BLACKWELL, DO 09/15/2012 documente d in this encounter Consult Notes Enrique Mendoza MD - 09/14/2012 9:21 PM PST Consults by Enrique Mendoza MD at 09/14/122120 Author: Enrique Mendoza MD Service: Cardiology Author Type: Physician Filed: 09/15/12 1559 Date of Service: 09/14/122120 Status: Signed Electrical Journeyman: Enrique Mendoza MD (Physician) [facility] Service: Cardiology Initial Consult Note Name of Club Lounge Attendant: Enrique Mendoza MD Date of Admission: 09/14/2012 Reason for Consultation: Possible NSTEMI Requesting Physician: Dr. Martinez, Emergency Department History Obtained From: patient CHIEF COMPLAINT: Syncopal episode. HISTORY OF PRESENT ILLNESS The patient is a 61 y.o. female admitted on 09/14/2012. She is with recent fracture of left ankle who had an un witnessed syncope at home. She was walking at home, she doesn't remember hitting the floor, she didn't injure herself. She is not sure how long she was out, but whe n she woke up, she felt SOB, nausea and chest pressure. She went to [facility] where she was found to have diffuse ST depression and hypo tensive. SHe was thought to have high risk NSTEMI and so she was transferred to our ER. When I saw her in ER, she was chest pain free. REVIEW OF SYSTEMS Negative except for pertinent items noted in HPI GENERAL: no history of recent fever or chills. No history of easy fatigability. NEUROLOGICAL: No history of dizziness. Recent loss of consciousness. No history of weakness . No history of numbness. No history of double vision. No history of temporary blindness. CARDIAC: Chest pain. No history of palpitations. RESPIRATORY: Shortness of breath. No history of cough. No history of sputum. GASTROINTESTINAL: No history of nausea. No history of vomiting. No history of abdominal tg n. No history of change in bowel habits. GENITOURINARY: no history or dysuria or change in the color or the urine. VASCULAR: No history of claudication. No history of swelling of lower extremities. SKIN: No history of bruising. No history of rash. ENDOCRINE: No history of excessive sweating. No history of recent weight changes. MUSCULOSKELETAL: Left ankle pain. PSYCHIATRIC: No history of of depression. No history of anxiety. PAST MEDICAL & SURGICAL HISTORY Past Medical History Diagnosis Date Hypertension No past surgical history on file. MEDICATIONS Home Medications Prescriptions prior to admission Medication Sig Dispense Refill aspirin 81 MG EC tablet Take 81 mg by mouth daily. famotidine (PEPCID) 10 MG tablet Take 20 mg by mouth daily. fluoxetine (PROZAC) 20 MG tablet Take 20 mg by mouth daily. metoprolol (TOPROL-XL) 50 MG 24 hr tablet Take 50 mg by mouth daily. Inhospital Medications lidocaine sodium chloride 10 mL Intravenous Q8H heparin in D5W 50 units/mL heparin in D5W 50 units/mL Allergies No Known Allergies FAMILY HISTORY History reviewed. No pertinent family history. SOCIAL HISTORY History Social History Marital Status: Spouse Name: N/A Number of Children: N/A Years of Education: N/A Occupational History Not on file. Social History Main Topics Smoking status: Never Smoker Smokeless tobacco: Not on file Alcohol Use: No Drug Use: No Sexually Active: Other Topics Concern Not on file Social History Narrative No narrative on file PHYSICAL EXAM Vital Signs: BP 141/72 | Pulse 95 | Temp(Src) 98.2 F (36.8 C) (Oral) | Resp 16 | Ht 1.524 m (5') | W t 86.183 kg (190 lb) | BMI 37.11 kg/m2 | SpO2 94% No intake or output data in the 24 hours ending 09/14/122120 General appearance: alert and cooperative HEENT: No xanthelasmas. Extraocular movements were intact. No jaundice. NECK: no JVD, lymphadenopathy. Trachea is at midline. Thyroid is not palpable. CARDIAC: There is normal S1 and S2. No added sounds, murmurs, gallop, or rub. CHEST: Normal bilateral symmetrical chest excursion. Good bilateral air entry with no crack les or wheezing. No evidence of dullness. ABDOMEN: Soft and lax. No tenderness. No palpable organs. Active bowel sounds. EXTREMITIES: No lower extremities edema. Left calf tenderness. VASCULAR: Right carotid artery is +2 with no bruit. Left carotid artery is +2 with no bruit. Right radial artery is +2. Left radial artery is +2. NEURO: Alert and oriented times three with no focal deficit. Cranial nerves are grossly no rmal. SKIN: No bruises or rash. DATA Results Procedure Component Value Units Date/Time APTT [[id number]] (Abnormal) Collected:09/15/122201 Specimen Information:Blood Updated:09/15/12 224 APTT >240 (HH) seconds APTT [[id number]] (Abnormal) Collected:09/15/122052 Specimen Information:Blood Updated:09/15/12 214 APTT >240 (HH) seconds CK [[id number]] Collected:09/15/12 182 Specimen Information:Blood Updated:09/15/12 1904 CPK 153 U/L CK MB [[id number]] (Abnormal) Collected:09/15/12 1828 MMB 13.8 (H) ng/mL Updated:09/15/12 1904 CK-MB Index 9.0 aPTT [[id number]] (Abnormal) Collected:09/15/12 1130 Specimen Information:Blood Updated:09/15/12 1221 APTT >240 (HH) seconds CK MB [[id number]] (Abnormal) Collected:09/15/12 0927 MMB 15.4 (H) ng/mL Updated:09/15/12 1203 CK-MB Index 9.4 Troponin I [[id number]] (Abnormal) Collected:09/15/12 0927 TROPONIN I 2.92 (HH) ng/mL Updated:09/15/12 1203 CK [[id number]] Collected:09/15/12 09 Specimen Information:Blood Updated:09/15/12 1000 CPK 164 U/L POCT glucose [[id number]] (Abnormal) Collected:09/15/12 0156 GLUCOSE,POC SCREEN 116 (H) mg/dL Updated:09/15/12 0716 aPTT [[id number]] (Abnormal) Collected:09/15/12 0155 Specimen Information:Blood Updated:09/15/12 0305 APTT >240 (HH) seconds Basic metabolic panel [[id number]] (Abnormal) Collected:09/15/12154 Specimen Information:Blood Updated:09/15/12249 SODIUM 143 mmol/L POTASSIUM 4.2 mmol/L CHLORIDE 113 (H) mmol/L CO2 22 (L) mmol/L ANION GAP AGAP 12 mmol/L GLUCOSE 115 (H) mg/dL BUN 15 mg/dL CREATININE 0.84 mg/dL BUN/CREAT 18 CALCIUM 7.4 (L) mg/dL EGFR >60 mL/min/1.73m2 Magnesium [[id number]] Collected:09/15/12154 Specimen Information:Blood Updated:09/15/12249 MAGNESIUM 1.7 mg/dL Phosphorus [[id number]] Collected:09/15/12154 Specimen Information:Blood Updated:09/15/12249 PHOSPHORUS 2.9 mg/dL TSH [[id number]] Collected:09/15/12154 Specimen Information:Blood Updated:09/15/12249 TSH 1.87 uIU/mL CK [[id number]] Collected:09/15/12154 Specimen Information:Blood Updated:09/15/12249 CPK 149 U/L CK MB [[id number]] (Abnormal) Collected:09/15/12154 MMB 13.8 (H) ng/mL Updated:09/15/12249 CK-MB Index 9.3 Troponin I [[id number]] (Abnormal) Collected:09/15/12154 TROPONIN I 3.92 (HH) ng/mL Updated:09/15/12249 Hepatic function panel [[id number]] (Abnormal) Collected:09/15/12154 TOTAL PROTEIN 5.8 (L) g/dL Updated:09/15/12249 Albumin 2.9 (L) g/dL TBIL 0.9 mg/dL BILI, DIRECT 0.3 mg/dL ALK PHOS 101 U/L AST 137 (H) U/L ALT 105 (H) U/L Protime-INR [[id number]] Collected:09/15/12154 Specimen Information:Blood Updated:09/15/12215 INR 1.2 CBC w/auto diff (reflex to manual) [[id number]] (Abnormal) Collected:03/01/13 0155 Specimen Information:Blood Updated:09/15/12 0211 WBC 12.4 (H) K/uL RBC 3.94 M/uL HGB 12.0 g/dL HCT 37.8 % MCV 96.0 fl MCH 30.5 pg MCHC 31.8 (L) g/dL RDW SD 44.6 fl PLT 206 K/uL MPV 8.3 fl DIFF TYPE AUTOMATED NEUTROPHILS 82.3 (H) % LYMPHOCYTES 15.9 % MONOCYTES 1.6 % EOSINOPHILS 0.1 % BASOPHILS 0.1 % NEUTROPHILS ABS 10.2 (H) K/uL LYMPHOCYTES ABS 2.0 K/uL MONOCYTES ABS 0.2 K/uL EOSINOPHILS ABS 0.0 K/uL BASOPHILS ABS 0.0 K/uL MRSA by PCR [[id number]] Collected:09/14/122330 Specimen Information:Nasopharyngeal / Nasopharyngeal Culture Updated:09/15/12 0055 SOURCE NARES(NOSE) RESULT NEGATIVE Urine microscopic only [[id number]] (Abnormal) Collected:09/14/122331 WBC 1-5 /hpf Updated:09/14/122358 RBC 6-10 /hpf EPITHELIAL 1-5 /lpf BACTERIA 4+ (A) Casts 6-10 /lpf Urinalysis [[id number]] (Abnormal) Collected:09/14/122331 Specimen Information:Urine / Urine, Clean Catch Updated:09/14/122358 COLOR YELLOW CLARITY CLEAR SPECIFIC GRAVITY,URINE 1.020 LEUKOCYTE ESTERASE NEGATIVE NITRITE NEGATIVE UROBILINOGEN 0.2 mg/dL PROTEIN NEGATIVE mg/dL PH,URINE 5.5 BLOOD TRACE (A) KETONES NEGATIVE mg/dL BILIRUBIN NEGATIVE GLUCOSE NEGATIVE mg/dL EKG: Sinus tachy, no Q-waves, diffuse ST depression. ASSESSMENT & PLAN 61 y.o. Known case of: Hypertension. Left ankle fracture on 08/19/2012. Obesity. Admitted with: Syncope. Hypotension. SOB and chest pressure. Impression: Pulmonary embolism is a more probable diagnosis than ACS. Recommendations: Obtain stat CT-PE. IV heparin. If PE is positive, please treat accordingly and I will sign off. If PE is negative, will proceed with emergent LHC. Thank you for allowing me to participate in the care of this patient. Code Status: Full Code Primary Care Physician: IVANA MANTILLA MD 09/14/2012 documented in this enc ounter ED Notes Conversion Transaction, Provider Unknown - 09/14/2012 9:35 PM PSTFormatting of this note m ight be different from the original. ED Notes by Ray Castaneda RN at 09/14/122134 Author: Ray Castaneda RN Service: (none) Author Type: Registered Nurse Filed: 09/14/122134 Date of Service: 09/14/122134 Status: Signed Electrical Journeyman: Ray Castaneda RN (Registered Nurse) Dr. Blackwell at bedside. Ray Castaneda RN 09/14/122134 Niles Kearns MD - 09/14/2012 8:37 PM PSTFormatting of this note might be different from the or iginal. ED Provider Notes by Niles Martinez MD at 09/14/122036 Author: Niles Martinez MD Service: (none) Author Type: Physician Filed: 09/14/122216 Date of Service: 09/14/122036 Status: Signed Electrical Journeyman: Niles Martinez MD (Physician) Procedure Orders: 1. Critical Care [[id number]] ordered by Barb Smalls at 09/14/122111 [facility] Department of Emergency Medicine Pertinent History and Concerns: Unstable angina. On heparin. May go for cath upon arrival . Currently Involved Consultants at [facility]: [place] (09/14/121912 : NILES MARTINEZ) History of Present Illness Patient Identification Luiz Malave is a 61 y.o. female. Patient information was obtained from patient, EMS personnel and past medical records. History/Exam limitations: none. Patient presented to the Emergency Department by: Other Chief Complaint Chief Complaint Patient presents with Hypotension 8:37 PM Pt was brought to ED by [facility] from [facility] for possible OH. She had a n un witnessed syncopal event at work today. 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 P t apparently woke up finding herself face down on the ground. [place] short of breath, nauseate d, and weak. No chest pain. She called 911 and was taken to the nearest facility. Per [facility], pt denies any chest pain or current nausea. Recent ankle fx approximately 2 weeks ago. Care DATABASE SECURITY EXPERT en route c/w 3L IVF with 4thL in place, Ativan and was started on a Dopamine drip. EKG from showed ST depressions laterally. Past Medical History Diagnosis Date Hypertension Past Surgical History Procedure Date Cholecystectomy Colonoscopy Tonsillectomy Prior to Admission medications Not on File No Known Allergies History Social History Marital Status: Spouse Name: N/A Number of Children: N/A Years of Education: N/A Occupational History Not on file. Social History Main Topics Smoking status: Never Smoker Smokeless tobacco: Not on file Alcohol Use: No Drug Use: No Sexually Active: Other Topics Concern Not on file Social History Narrative No narrative on file History reviewed. No pertinent family history. Review of Systems Constitutional: Negative for: fever, chills, fatigue, sweats or weight loss Eyes: Negative for: decreased vision or irritated eyes Nose: Negative for: nosebleed Throat: Negative for: mouth sores Cardiovascular/Respiratory: Negative for: chest pain, cough Positive for sob Gastrointestinal: Negative for: abdominal pain, vomiting, diarrhea, black or bloody stools Genitourinary: Negative for: dysuria, hematuria, urinary problems Musculoskeletal: Negative for: arthralgias Positive for LLE pain Skin: Negative for: laceration or lesion Neuro and psych: Negative for: fainting, head injury, seizure Positive for fall Endocrine/Heme/Lymph: Negative for: swollen lymph nodes, easy bruising Physical Exam BP 163/88 | Pulse 120 | Temp(Src) 98.2 F (36.8 C) (Oral) | Resp 16 | SpO2 99% Hypertensive and Tachycardic Pulse Oximetry interpretation: Normal General: Alert, in no apparent distress Eyes: Normal inspection, pupils equal and round, non-icteric ENT: Ears normal Nose normal Pharynx normal Neck: Normal inspection Supple No lymphadenopathy No meningismus Cardiovascular: Tachycardic No murmurs Respiratory: Breath sounds normal bilaterally Abdomen: Soft, non-tender, non-distended No guarding or rebound Obesity Back: Normal inspection Skin: Warm and dry No rash Ecchymosis on chin Extremities: L calf compression TTP L ankle TTP Neuro: No motor deficit No sensory deficit Medical Decision Making and Emergency Department Course ED Department Course 8:41 PM Pt was brought to ED with a possible NSTEMI. Upon pt arriving to ED via [facility], she de nies chest pain or nausea. Based on her story and recent fracture I feel she most likely tran s a large PE causing heart strain as demonstrated by the lateral ST depressions. BP normal now so I will hold the Dopamine. Possibly hypotensive secondary to Ativan given to calm he r for the flight. Dr. Mendoza at bedside and agrees with my assesment. CT PE was ordered stat. If CT is negat joslyn for a PE, Dr. Mendoza will take pt to the pharmaceutical laboratory technician. This was verbalized to pt and she ex presses understanding and agrees with further treatment as necessary. EKG shows ST depression laterally - unchanged from prior. Dr. Mendoza aware. CT shows massive PE's bilaterally. I have notified Dr. Mendoza of CT findings. Agrees with medical management and ICU admission. I will call and arrange for admission to ICU. Will complete Full dose Heparin bolus (had received cardiac dose there) and increase drip t o full dose. 9:31 PM Discussed case with 's who agrees with care plan and will see patient in the ED. Dr. Ortiz accepts the patient to the ICU. She has remained hemodynamically stable at this point. Records Reviewed Old medical records. Laboratory Evaluation Results Procedure Component Value Ref Range Date/Time POC cardiac troponin [[id number]] (Abnormal) Collected:09/14/122154 Order Status:Completed Updated:09/14/122207 POC CARDIAC TROPONIN 1.99 (HH) 0.00 - 0.10 ng/mL Radiology and EKG Evaluation Imaging Results CT Chest PE Protocol (Final result) Result time:09/14/122109 Final result by Rad Results In Brijesh (09/14/12 21:10:42) Narrative: [facility] CT CHEST PULMONARY EMBOLISM W CONTRAST 09/14/2012 8:47 PM HISTORY: 61 years. Female. Rule out pulmonary embolus TECHNIQUE: 1.5-mm axial images of the chest were acquired in the arterial phase according to a CT gaurav ography protocol. Coronal CT angiographic MIP reconstructions were performed. IV contrast: 59 mL IsoVue 370 COMPARISON: None. FINDINGS: CT ANGIOGRAM: Note: These findings were discussed with the requesting clinician in the emergency departme nt by telephone at 2100 hrs. The pulmonary arterial tree is well opacified. Multiple pulmonary emboli are identified as follows: There is near occluding thrombus with in left and right main pulmonary arteries on the right there is thrombus extending into the proximal portion of the upper and middle lobe segments with a large amount of thrombus exten ding into the lower lobe artery.. On the left the near occluding thrombus in the left main pulmonary artery with a large volu me of thrombus extending into the left lower lobe branch. 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 No dissection, aneu rysm or stenosis is seen in the aorta or great vessels. No aneurysmal dilatation. No evidence of dissection. Cardiomegaly is noted. No pericardial abnormality is seen. No filling defects are seen in the chambers of the heart to suggest clot or tumor. CT CHEST: The lungs are well aerated. No acute airspace disease, parenchymal nodule, mass, pleural e ffusion or pneumothorax is noted. No bronchiectasis is seen. The thyroid is symmetric and shows no evidence of a solid or cystic mass. No bulky adenopathy is seen in the lower karly stations of the neck, axillary regions, medi astinum or hilar regions. The thoracic esophagus is normal. No hiatal hernia is seen. The muscles of the chest are symmetric. No focal atrophy or soft tissue mass is seen. The osseous structures of the chest do not demonstrate lytic or blastic lesions. In the upper abdomen the visualized portions of the liver, spleen, pancreas, adrenal glands and kidneys are normal in size, position, contour and attenuation. No solid or cystic mass es are seen in these organs. No upper abdominal adenopathy is seen. The visualized portion s of the stomach and small bowel are normal. The patient is status post cholecystectomy. IMPRESSION: 1. Large volume of bilateral pulmonary emboli as described above. The requesting clinicia n is aware. from 20:42: sinus rhythm at 122 bpm. NM, QRS, QT, and axis are normal. ST depression la terally . No significant Q waves. Good R wave progression through the precordial leads. No a cute ischemia. In comparison with an old ECG from earlier today there are no significant changes. This study has been independently viewed and interpreted by me. ED Diagnoses Final diagnoses Bilateral pulmonary embolism Transient hypotension Hypoxia Elevated troponin Closed left ankle fracture Remote Disposition: ED Disposition Admit/Observation Requested Unit:: ICU Bed request special needs: Telemetry Admitting Provider: IVAN BLACKWELL [[id number]] Diagnosis?: b/l PE, transient hypotension Follow-up Information None Discharge Medications: New Prescriptions No new medications Additional Documentation Critical Care Performed by: NILES MARTINEZ Authorized by: NILES MARTINEZ Total critical care time: 40 minutes Critical care time was exclusive of separately billable procedures and treating other patie nts. Critical care was necessary to treat or prevent imminent or life-threatening deterioration of the following conditions: circulatory failure. Critical care was time spent personally by me on the following activities: evaluation of pa tient's response to treatment, ordering and performing treatments and interventions, pulse o ximetry, development of treatment plan with patient or surrogate, examination of patient, or dering and review of laboratory studies, re-evaluation of patient's condition, discussions w ith consultants, interpretation of cardiac output measurements, obtaining history from patie nt or surrogate, ordering and review of radiographic studies and review of old charts. Attending Note: Documentation assistance provided by BARB SMALLS (Scribe). Information recorded by the scribe has been reviewed and validated by me. Jose vigil with its contents. MD Niles Velasquez MD 09/14/122216 onversion Transactio n, Provider Unknown - 09/14/2012 8:30 PM PST ED Notes by Ray Castaneda RN at 09/14/122029 Author: Ray Castaneda RN Service: (none) Author Type: Registered Nurse Filed: 09/14/122029 Date of Service: 09/14/122029 Status: Signed Electrical Journeyman: Ray Castaneda RN (Registered Nurse) Bed:19
Expected date:
Expected time:
Means of arrival:
Comments:
onver leatha Transaction, Provider Unknown - 09/14/2012 8:14 PM PST ED Notes by Matteo Christopher RN at 09/14/122013 Author: Matteo Christopher RN Service: (none) Author Type: Registered Nurse Filed: 09/14/122020 Date of Service: 09/14/122013 Status: Signed Electrical Journeyman: Matteo Christopher RN (Registered Nurse) EMS report. 61 y.o. female with transfer from [place] for NSTEMI. Has had 3 Liters of f luid and on now.. BP 79/49, HR 94, O2 sat 100%. ETA 8 min. Matteo Christopher RN 09/14/122020 docume nted in this encounter Plan of Treatment Not on filedocumented as of this encounter Procedures + +--------+ + + + | Procedure Name | Priori | Date/Time | Associated Diagnosis | Comments | | | ty | | | | + +--------+ + + + | CULTURE, URINE | Routin | 09/17/2012 | | Results for this | | | e | 4:03 AM | | procedure are in the | | | | PST | | results section. | + +--------+ + + + | CT HEAD | Routin | 09/15/2012 | | Results for this | | MAXILLOFACIAL WO | e | 12:11 PM | | procedure are in the | | CONTRAST | | PST | | results section. | + +--------+ + + + | XR TIBIA FIBULA LEFT | Routin | 09/15/2012 | | Results for this | | 2 VW | e | 9:46 AM | | procedure are in the | | | | PST | | results section. | + +--------+ + + + | VAS LOWER EXTREMITY | Routin | 09/15/2012 | | Results for this | | VENOUS BILATERAL | e | 9:28 AM | | procedure are in the | | | | PST | | results section. | + +--------+ + + + | ECHO COMPLETE | Routin | 09/15/2012 | | Results for this | | | e | 8:10 AM | | procedure are in the | | | | PST | | results section. | + +--------+ + + + | XR CHEST 1 VIEW | Routin | 09/15/2012 | | Results for this | | | e | 2:27 AM | | procedure are in the | | | | PST | | results section. | + +--------+ + + + | MRSA NAAT | Timed | 09/14/2012 | | Results for this | | | | 11:31 PM | | procedure are in the | | | | PST | | results section. | + +--------+ + + + | CT ANGIOGRAM | Routin | 09/14/2012 | | Results for this | | PULMONARY | e | 9:02 PM | | procedure are in the | | | | PST | | results section. | + +--------+ + + + documented in this encounter Results Culture, Urine (09/17/2012 4:03 AM PST) + + | Specimen | + + | | + + + + + | Narrative | Performed At | + + + | Specimen Description URINE, COLLECTION NOT | EXTERNAL LAB | | GIVEN Testing | | | performed [place] [facility] [place];[place] [address] CULTURE | | | <10,000 CFU/ML MIXED GRAM POSITIVE AND | | | GRAM NEGATIVE RENE NO SUSCEPTIBILITY TO FOLLOW | | | Testing performed at [facility], [address] | | | [place] [address] REPORT STATUS | | | 09/18/2012 FINAL | | + + + + +---------+ + + | Performing | Address | City/State/Zipcode | Phone Number | | Organization | | | | + +---------+ + + | EXTERNAL LAB | | | | + +---------+ + + CT Head Maxillofacial wo Contrast (09/15/2012 12:11 PM PST) + + | Specimen | + + | | + + + + + | Narrative | Performed At | + + + | [facility] CT HEAD FACIAL WO CONTRAST HISTORY: 61 years. | | | Female. Orbit pain. TECHNIQUE: CT examination the head and face | | | was performed without contrast. Coronal and sagittal reformatted | | | images were obtained. COMPARISON: None. FINDINGS: No | | | abnormal areas of increase or decrease density seen throughout the | | | brain. No mass, hemorrhage, midline shift, or extra-axial fluid | | | collection. Tiny mucus retention cyst within the maxillary sinuses | | | and. Bilateral ostiomeatal units are patent. Negative for fracture. | | | The globes are normal and symmetric in size. No intra-or | | | extraconal mass or abnormality. IMPRESSION: 1. Negative CT head | | | without contrast. 2. Tiny mucus retention cyst within the | | | maxillary sinus. Electronically signed by Harley Lee DO on | | | 09/15/2012 12:23 PM | | + + + + + | Procedure Note | + + | Brijesh, Med Conversion - 03/09/2019 5:31 PM PDT [facility] HEAD FACIAL WO CONTRAST | | HISTORY:61 years. Female. Orbit pain. TECHNIQUE:CT examination the head and face was | | performed without contrast. Coronal and sagittal reformatted images were obtained. | | COMPARISON:None. FINDINGS:No abnormal areas of increase or decrease density seen | | throughout the brain. No mass, hemorrhage, midline shift, or extra-axial fluid | | collection. Tiny mucus retention cyst within the maxillary sinuses and. Bilateral | | ostiomeatal units are patent. Negative for fracture. The globes are normal and symmetric | | in size. No intra-or extraconal mass or abnormality. IMPRESSION:1. Negative CT head | | without contrast.2. Tiny mucus retention cyst within the maxillary sinus. | | | |None. | | | |FINDINGS: | |No abnormal areas of increase or decrease density seen throughout the brain. No mass, hemor rhage, midline shift, or extra-axial fluid collection. Tiny mucus retention cyst within the maxillary sinuses and. | |Bilateral ostiomeatal units are patent. Negative | | for fracture. | | | |The globes are normal and symmetric in size. No intra-or extraconal mass or abnormality. | | | |IMPRESSION: | |1. Negative CT head without contrast. | |2. Tiny mucus retention cyst within the maxillary sinus. | | | | | + + XR Tibia Fibula Left 2 Vw (09/15/2012 9:46 AM PST) + + | Specimen | + + | | + + + + + | Narrative | Performed At | + + + | [facility] XR TIBIA FIBULA LEFT HISTORY: 61 years. Female. | | | Trauma. TECHNIQUE: Frontal and lateral views of the left tibia | | | and fibula. COMPARISON: None. FINDINGS: There is a subtle | | | nondisplaced oblique fracture of the distal fibula approximately 1 cm | | | proximal to the tibiotalar joint. IMPRESSION: 1. Nondisplaced | | | oblique fracture of the distal fibula. | | + + + + + | Procedure Note | + + | Med [facility] Conversion - 03/09/2019 5:31 PM PDT [facility] TIBIA FIBULA LEFT | | HISTORY:61 years. Female. Trauma. TECHNIQUE:Frontal and lateral views of the left tibia | | and fibula. COMPARISON:None. FINDINGS:There is a subtle nondisplaced oblique fracture of | | the distal fibula approximately 1 cm proximal to the tibiotalar joint. IMPRESSION:1. | | Nondisplaced oblique fracture of the distal fibula. | |TECHNIQUE: | |Frontal and lateral views of the left tibia and fibula. | | | |COMPARISON: | |None. | | | |FINDINGS: | |There is a subtle nondisplaced oblique fracture of the distal fibula approximately 1 cm pro ximal to the tibiotalar joint. | | | |IMPRESSION: | |1. Nondisplaced oblique fracture of the distal fibula. | | | | | + + VAS Lower Extremity Venous Bilateral (09/15/2012 9:28 AM PST) + + | Specimen | + + | | + + + + + | Narrative | Performed At | + + + | [facility] 1950 LOWER EXTREMITY VENOUS DOPPLER BILAT | | | 09/15/2012 8:15 AM HISTORY: Patient has a known PE with broken | | | fibula, leg pain TECHNIQUE: Bilateral lower extremity venous | | | Doppler performed with color Doppler and spectral Doppler waveform | | | analysis. COMPARISON: None. FINDINGS: The deep venous system | | | of the right lower extremity is normal on grayscale imaging with | | | normal compressibility. Normal augmentation is present. The calf | | | vessels are normal. The deep venous system of the left lower | | | extremity is normal on grayscale imaging. In the calf, there | | | appears to be absent color flow involving the posterior tibial vein | | | which is noncompressible. This extends in the popliteal vein. | | | IMPRESSION: 1. Demonstration of deep venous thrombosis involving | | | the left popliteal vein extending into the posterior tibial. 2. | | | Critical result: Imaging findings discussed with the nurse taking | | | care of the patient by telephone at 9:47 a.m. This is performed | | | within one hour of review of images. | | + + + + + | Procedure Note | + + | Brijesh, Rad Conversion - 03/09/2019 5:31 PM [facility] MALAVE1950US LOWER EXTREMITY | | VENOUS DOPPLER 09/15/2012 8:15 AM HISTORY: Patient has a known PE with broken fibula, | | leg pain TECHNIQUE: Bilateral lower extremity venous Doppler performed with color | | Doppler and spectral Doppler waveform analysis. COMPARISON: None. FINDINGS: The deep | | venous system of the right lower extremity is normal on grayscale imaging with normal | | compressibility. Normal augmentation is present. The calf vessels are normal. The deep | | venous system of the left lower extremity is normal on grayscale imaging. In the | | calf, there appears to be absent color flow involving the posterior tibial vein which is | | noncompressible. This extends in the popliteal vein. IMPRESSION:1. Demonstration of | | deep venous thrombosis involving the left popliteal vein extending into the posterior | | tibial.2. Critical result: Imaging findings discussed with the nurse taking care of the | | patient by telephone at 9:47 a.m. This is performed within one hour of review of | | images. | |The deep venous system of the left lower extremity is normal on grayscale imaging. In the calf, there appears to be absent color flow involving the posterior tibial vein which is no ncompressible. This extends in the popliteal vein. | | | |IMPRESSION: | |1. Demonstration of deep venous thrombosis involving the left popliteal vein extending int o the posterior tibial. | |2. Critical result: Imaging findings discussed with the nurse taking care of the patient b y telephone at 9:47 a.m. This is performed within one hour of review of images. | | | | | + + ECHO Complete (09/15/2012 8:10 AM PST) + + | Specimen | + + | | + + + + + | Narrative | Performed At | + + + | Patient Name: LUIZ MALAVE Date of : 1950 | | | Performing Physician: Enrique Mendoza MD | | | | | | INDICATIONS Abnormal EKG CONCLUSIONS | | | 1. Overall left ventricular systolic function is normal with, an EF | | | between 65 - 70 %. 2. The cavity size is decreased. 3. The right | | | ventricle is severely enlarged measuring >4.1 cm. 4. Paradoxical | | | motion of the right ventricular septum is consistent with right | | | ventricular overload and/or elevated right ventricular end-diastolic | | | pressure. 5. Moderate to severe tricuspid regurgitation present. 6. | | | The right ventricular systolic pressure (pulmonary artery systolic | | | pressure), as measured by Doppler, is between 31.76mmHg and 36.76mmHg. | | | FINDINGS -------- ECG rhythm: Sinus rhythm. Study: A | | | 2-dimensional transthoracic echocardiogram with m-mode, spectral and | | | color flow Doppler was perfomed. Study: This was a technically | | | adequate study. Left Ventricle: Overall left ventricular systolic | | | function is normal with, an EF between 65 - 70 %. Left Ventricle: The | | | cavity size is decreased. Left Ventricle: There is mild concentric | | | left ventricular hypertrophy. Left Ventricle: No regional wall motion | | | abnormalities. Left Ventricle: There is septal flattening in | | | diastole which is consistent with right ventricular volume overload. | | | Left Ventricle: The diastolic filling pattern indicates impaired | | | relaxation consistent with mild dysfunction (Grade I). Right | | | Ventricle: The right ventricle is severely enlarged measuring >4.1 cm. | | | Right Ventricle: Paradoxical motion of the right ventricular septum | | | is consistent with right ventricular overload and/or elevated right | | | ventricular end-diastolic pressure. Left Atrium: The left atrium is | | | normal in size. Right Atrium: The right atrium is normal in size. | | | Aortic Valve: The aortic valve is trileaflet, and appears anatomically | | | normal. No aortic stenosis or regurgitation. Mitral Valve: There is | | | trace mitral regurgitation. Mitral Valve: Mild mitral annular | | | calcification present. Mitral Valve: Mild thickening of the anterior | | | mitral valve leaflet. Mitral Valve: There is mild thickening of the | | | posterior mitral valve leaflet. Tricuspid Valve: The tricuspid valve | | | appears structurally normal. Tricuspid Valve: Moderate to severe | | | tricuspid regurgitation present. Tricuspid Valve: The right | | | ventricular systolic pressure (pulmonary artery systolic pressure), as | | | measured by Doppler, is between 31.76mmHg and 36.76mmHg. Pulmonic | | | Valve: The pulmonic valve is normal. Pulmonic Valve: No significant | | | pulmonic regurgitation. Pericardium: There is no pericardial | | | effusion. IVC/Hepatic Veins: The IVC is normal size (1.5-2.5cm) and | | | collapses <50% with sniff, consistent with central venous pressures of | | | 10-15mmHg. MEASUREMENTS LA Major: 4.07 cm | | | LVOT Diam: 1.74 cm RA Major: 4.31 cm RVIDd: 4.04 cm LVEF | | | MOD A2C: 71.54 % SV MOD A2C: 43.79 ml LVEF MOD A4C: 65.86 % | | | SV MOD A4C: 24.94 ml EF Biplane: 61.24 % LVEDV MOD BP: | | | 47.78 ml LVESV MOD BP: 18.52 ml LVEDV MOD A2C: 61.21 ml LVLd | | | A2C: 6.46 cm LVEDV MOD A4C: 37.87 ml LVLd A4C: 6.71 cm | | | LVESV MOD A2C: 17.41 ml LVLs A2C: 5.08 cm LVESV MOD A4C: | | | 12.92 ml LVLs A4C: 4.54 cm LAESV(A-L): 35.32 ml LAESV Index | | | (A-L): 19.30 ml/m2 LAAs A2C: 13.44 cm2 LAESV A-L A2C: 38.30 | | | ml LALs A2C: 4.00 cm LAAs A4C: 12.40 cm2 LAESV A-L A4C: | | | 31.01 ml LALs A4C: 4.20 cm MR Flow: 84.22 ml/s MR Rad: | | | 0.73 cm MR Als.Warren: 0.24 m/s Ao Diam: 2.13 cm AV Cusp: | | | 1.58 cm LA Diam: 2.97 cm LA/Ao: 1.39 %FS: 38.59 % | | | EDV(Teich): 25.26 ml EF(Teich): 70.99 % ESV(Teich): 7.32 ml | | | IVSd: 1.15 cm IVSs: 1.42 cm LVIDd: 2.62 cm LVIDs: | | | 1.61 cm LVPWd: 1.06 cm LVPWs: 1.61 cm SV(Teich): 17.93 ml | | | D-E Excursion: 1.24 cm E-F [place]: 0.02 m/s IVC diameter: | | | 2.41 cm IVC collapse: 1.98 cm IVC % collapse: 15.23 % HR: | | | 80.74 BPM AV maxP.10 mmHg AV meanP.63 mmHg AV Vmax: | | | 0.88 m/s AV Vmean: 0.59 m/s AV VTI: 16.54 cm MERCEDES Vmax: | | | 1.75 cm2 MERCEDES (VTI): 1.57 cm2 LVCI Dopp: 1.20 l/minm2 LVCO | | | Dopp: 2.20 l/min HR: 84.53 BPM LVOT maxP.66 mmHg LVOT | | | meanP.89 mmHg LVSI Dopp: 14.22 ml/m2 LVSV Dopp: 26.03 | | | ml LVOT Vmax: 0.64 m/s LVOT Vmean: 0.44 m/s LVOT VTI: | | | 10.87 cm MCO: 469.50 ms MV A Warren: 0.61 m/s MV DecT: 131.24 | | | ms MV E Warren: 0.42 m/s MV E/A Ratio: 0.68 MV PHT: 39.44 ms | | | MVA By PHT: 5.57 cm2 MV A Dur: 107.20 ms Septal e': 0.05 | | | m/s Septal E/e': 7.63 Lateral e': 0.08 m/s Lateral E/e': | | | 4.90 TR Vmax: 2.34 m/s TR VTI: 71.79 cm P Vein A: 0.27 m/s | | | P Vein A Dur: 92.42 ms P Vein D: 0.31 m/s P Vein S/D Ratio: | | | 1.30 P Vein S: 0.41 m/s PAEDP: 18.43 mmHg PRend PG: | | | 3.43 mmHg PRend Vmax: 0.92 m/s HR: 85.42 BPM PV maxPG: | | | 1.56 mmHg PV meanP.45 mmHg PV Vmax: 0.62 m/s PV Vmean: | | | 0.29 m/s PV VTI: 8.03 cm RAP: 15 mmHg RVSP: 36.76 mmHg | | | TR maxP.76 mmHg TR Vmax: 2.33 m/s TV A Warren: 0.37 m/s | | | TV Dec [place]: 4.02 m/s2 TV Dec Time: 165.61 ms TV E Warren: | | | 0.66 m/s TV E/A Ratio: 1.75 Surveillance Sensor Operator: Authenticated by: | | | Enrique Mendoza MD Report Date/Time: 09-15-2012 12:32:50 | | + + + + + | Procedure Note | + + | Med [facility] Conversion - 03/09/2019 5:31 PM PDT Patient Name: Tiana MALAVE of | | : 1950 Performing Physician: Enrique Mendoza | | INDICATIONS A | | bnormal EKG CONCLUSIONS 1. Overall left ventricular systolic function is | | normal with, an EF between 65 - 70 %.2. The cavity size is decreased.3. The right | | ventricle is severely enlarged measuring >4.1 cm.4. Paradoxical motion of the right | | ventricular septum is consistent with right ventricular overload and/or elevated right | | ventricular end-diastolic pressure.5. Moderate to severe tricuspid regurgitation | | present.6. The right ventricular systolic pressure (pulmonary artery systolic pressure), | | as measured by Doppler, is between 31.76mmHg and 36.76mmHg. FINDINGS--------ECG rhythm: | | Sinus rhythm.Study: A 2-dimensional transthoracic echocardiogram with m-mode, spectral | | and color flow Doppler was perfomed.Study: This was a technically adequate study.Left | | Ventricle: Overall left ventricular systolic function is normal with, an EF between 65 - | | 70 %.Left Ventricle: The cavity size is decreased.Left Ventricle: There is mild | | concentric left ventricular hypertrophy.Left Ventricle: No regional wall motion | | abnormalities.Left Ventricle: There is septal flattening in diastole which is consistent | | with right ventricular volume overload.Left Ventricle: The diastolic filling pattern | | indicates impaired relaxation consistent with mild dysfunction (Grade I).Right | | Ventricle: The right ventricle is severely enlarged measuring >4.1 cm.Right Ventricle: | | Paradoxical motion of the right ventricular septum is consistent with right ventricular | | overload and/or elevated right ventricular end-diastolic pressure.Left Atrium: The left | | atrium is normal in size.Right Atrium: The right atrium is normal in size.Aortic Valve: | | The aortic valve is trileaflet, and appears anatomically normal. No aortic stenosis or | | regurgitation.Mitral Valve: There is trace mitral regurgitation.Mitral Valve: Mild | | mitral annular calcification present.Mitral Valve: Mild thickening of the anterior | | mitral valve leaflet.Mitral Valve: There is mild thickening of the posterior mitral | | valve leaflet.Tricuspid Valve: The tricuspid valve appears structurally normal.Tricuspid | | Valve: Moderate to severe tricuspid regurgitation present.Tricuspid Valve: The right | | ventricular systolic pressure (pulmonary artery systolic pressure), as measured by | | Doppler, is between 31.76mmHg and 36.76mmHg.Pulmonic Valve: The pulmonic valve is | | normal.Pulmonic Valve: No significant pulmonic regurgitation.Pericardium: There is no | | pericardial effusion.IVC/Hepatic Veins: The IVC is normal size (1.5-2.5cm) and collapses | | <50% with sniff, consistent with central venous pressures of 10-15mmHg. | | MEASUREMENTS LA Major: 4.07 cmLVOT Diam: 1.74 cmRA Major: 4.31 | | cmRVIDd: 4.04 cmLVEF MOD A2C: 71.54 %SV MOD A2C: 43.79 mlLVEF MOD A4C: 65.86 %SV | | MOD A4C: 24.94 mlEF Biplane: 61.24 %LVEDV MOD BP: 47.78 mlLVESV MOD BP: 18.52 | | mlLVEDV MOD A2C: 61.21 mlLVLd A2C: 6.46 cmLVEDV MOD A4C: 37.87 mlLVLd A4C: 6.71 | | cmLVESV MOD A2C: 17.41 mlLVLs A2C: 5.08 cmLVESV MOD A4C: 12.92 mlLVLs A4C: 4.54 | | cmLAESV(A-L): 35.32 mlLAESV Index (A-L): 19.30 ml/m2LAAs A2C: 13.44 [id number] A-L | | A2C: 38.30 mlLALs A2C: 4.00 cmLAAs A4C: 12.40 [id number] A-L A4C: 31.01 mlLALs | | A4C: 4.20 cmMR Flow: 84.22 ml/sMR Rad: 0.73 cmMR Als.Warren: 0.24 m/Des Diam: | | 2.13 cmAV Cusp: 1.58 cmLA Diam: 2.97 cmLA/Ao: 1.39%FS: 38.59 %EDV(Teich): | | 25.26 mlEF(Teich): 70.99 %ESV(Teich): 7.32 mlIVSd: 1.15 cmIVSs: 1.42 cmLVIDd: | | 2.62 cmLVIDs: 1.61 cmLVPWd: 1.06 cmLVPWs: 1.61 cmSV(Teich): 17.93 mlD-E | | Excursion: 1.24 cmE-F [place]: 0.02 m/sIVC diameter: 2.41 cmIVC collapse: 1.98 | | cmIVC % collapse: 15.23 %HR: 80.74 BPMAV maxP.10 mmHgAV meanP.63 mmHgAV | | Vmax: 0.88 m/Domi Vmean: 0.59 m/Domi VTI: 16.54 cmAVA Vmax: 1.75 cm2AVA (VTI): | | 1.57 [id number] Dopp: 1.20 l/qqhe3MBOF Dopp: 2.20 l/minHR: 84.53 BPMLVOT maxPG: | | 1.66 mmHgLVOT meanP.89 mmHgLVSI Dopp: 14.22 ml/m2LVSV Dopp: 26.03 mlLVOT Vmax: | | 0.64 m/sLVOT Vmean: 0.44 m/sLVOT VTI: 10.87 cmMCO: 469.50 msMV A Warren: 0.61 | | m/sMV DecT: 131.24 msMV E Warren: 0.42 m/sMV E/A Ratio: 0.68MV PHT: 39.44 msMVA By | | PHT: 5.57 cm2MV A Dur: 107.20 msSeptal e': 0.05 m/sSeptal E/e': 7.63Lateral e': | | 0.08 m/sLateral E/e': 4.90TR Vmax: 2.34 m/sTR VTI: 71.79 cmP Vein A: 0.27 m/sP | | Vein A Dur: 92.42 msP Vein D: 0.31 m/sP Vein S/D Ratio: 1.30P Vein S: 0.41 | | m/sPAEDP: 18.43 mmHgPRend P.43 mmHgPRend Vmax: 0.92 m/sHR: 85.42 BPMPV | | maxP.56 mmHgPV meanP.45 mmHgPV Vmax: 0.62 m/sPV Vmean: 0.29 m/sPV VTI: | | 8.03 cmRAP: 15 mmHgRVSP: 36.76 mmHgTR maxP.76 mmHgTR Vmax: 2.33 m/sTV A | | Warren: 0.37 m/sTV Dec [place]: 4.02 m/s2TV Dec Time: 165.61 msTV E Warren: 0.66 m/sTV | | E/A Ratio: 1.75 Surveillance Sensor Operator: JULIENuthenticated by: Enrique Mendoza MDReport Date/Time: | | 09-15-2012 12:32:50 | |LVEDV MOD BP: 47.78 ml | |LVESV MOD BP: 18.52 ml | |LVEDV MOD A2C: 61.21 ml | |LVLd A2C: 6.46 cm | |LVEDV MOD A4C: 37.87 ml | |LVLd A4C: 6.71 cm | |LVESV MOD A2C: 17.41 ml | |LVLs A2C: 5.08 cm | |LVESV MOD A4C: 12.92 ml | |LVLs A4C: 4.54 cm | |LAESV(A-L): 35.32 ml | |LAESV Index (A-L): 19.30 ml/m2 | |LAAs A2C: 13.44 cm2 | |LAESV A-L A2C: 38.30 ml | |LALs A2C: 4.00 cm | |LAAs A4C: 12.40 cm2 | |LAESV A-L A4C: 31.01 ml | |LALs A4C: 4.20 cm | |MR Flow: 84.22 ml/s | |MR Rad: 0.73 cm | |MR Als.Warren: 0.24 m/s | |Ao Diam: 2.13 cm | |AV Cusp: 1.58 cm | |LA Diam: 2.97 cm | |LA/Ao: 1.39 | |%FS: 38.59 % | |EDV(Teich): 25.26 ml | |EF(Teich): 70.99 % | |ESV(Teich): 7.32 ml | |IVSd: 1.15 cm | |IVSs: 1.42 cm | |LVIDd: 2.62 cm | |LVIDs: 1.61 cm | |LVPWd: 1.06 cm | |LVPWs: 1.61 cm | |SV(Teich): 17.93 ml | |D-E Excursion: 1.24 cm | |E-F [place]: 0.02 m/s | |IVC diameter: 2.41 cm | |IVC collapse: 1.98 cm | |IVC % collapse: 15.23 % | |HR: 80.74 BPM | |AV maxP.10 mmHg | |AV meanP.63 mmHg | |AV Vmax: 0.88 m/s | |AV Vmean: 0.59 m/s | |AV VTI: 16.54 cm | |MERCEDES Vmax: 1.75 cm2 | |MERCEDES (VTI): 1.57 cm2 | |LVCI Dopp: 1.20 l/minm2 | |LVCO Dopp: 2.20 l/min | |HR: 84.53 BPM | |LVOT maxP.66 mmHg | |LVOT meanP.89 mmHg | |LVSI Dopp: 14.22 ml/m2 | |LVSV Dopp: 26.03 ml | |LVOT Vmax: 0.64 m/s | |LVOT Vmean: 0.44 m/s | |LVOT VTI: 10.87 cm | |MCO: 469.50 ms | |MV A Warren: 0.61 m/s | |MV DecT: 131.24 ms | |MV E Warren: 0.42 m/s | |MV E/A Ratio: 0.68 | |MV PHT: 39.44 ms | |MVA By PHT: 5.57 cm2 | |MV A Dur: 107.20 ms | |Septal e': 0.05 m/s | |Septal E/e': 7.63 | |Lateral e': 0.08 m/s | |Lateral E/e': 4.90 | |TR Vmax: 2.34 m/s | |TR VTI: 71.79 cm | |P Vein A: 0.27 m/s | |P Vein A Dur: 92.42 ms | |P Vein D: 0.31 m/s | |P Vein S/D Ratio: 1.30 | |P Vein S: 0.41 m/s | |PAEDP: 18.43 mmHg | |PRend P.43 mmHg | |PRend Vmax: 0.92 m/s | |HR: 85.42 BPM | |PV maxP.56 mmHg | |PV meanP.45 mmHg | |PV Vmax: 0.62 m/s | |PV Vmean: 0.29 m/s | |PV VTI: 8.03 cm | |RAP: 15 mmHg | |RVSP: 36.76 mmHg | |TR maxP.76 mmHg | |TR Vmax: 2.33 m/s | |TV A Warren: 0.37 m/s | |TV Dec [place]: 4.02 m/s2 | |TV Dec Time: 165.61 ms | |TV E Warren: 0.66 m/s | |TV E/A Ratio: 1.75 | | | |Surveillance Sensor Operator: | |Authenticated by: Enrique Mendoza MD | |Report Date/Time: 09-15-2012 12:32:50 | + + XR Chest 1 Vw (09/15/2012 2:27 AM PST) + + | Specimen | + + | | + + + + + | Narrative | Performed At | + + + | [facility] 1950 61 years XR CHEST 1 VIEW 09/15/2012 2:15 AM | | | INDICATION: Line placement COMPARISON: None TECHNIQUE: | | | Chest 1 view, AP view of the chest FINDINGS: The patient has a | | | left IJ central venous catheter with the tip terminating near the | | | atriocaval junction. The heart is normal in size without mediastinal | | | widening. There is no pneumothorax. No apical capping is | | | demonstrated. The pulmonary vasculature is normal. The lungs are | | | clear without focal airspace disease. Chronic left-sided rib | | | fractures are noted. IMPRESSION: 1. Status post left IJ | | | placement. Electronically signed by Severiano Berkowitz MD on | | | 09/15/2012 8:36 AM | | + + + + + | Procedure Note | + + | Brijesh, Rad Conversion - 03/09/2019 5:31 PM PRANAV MALAVE89 yearsXR CHEST 1 | | VIEW09/15/2012 2:15 AM INDICATION: Line placement COMPARISON: None TECHNIQUE: Chest 1 | | view, AP view of the chest FINDINGS: The patient has a left IJ central venous catheter | | with the tip terminating near the atriocaval junction. The heart is normal in size | | without mediastinal widening. There is no pneumothorax. No apical capping is | | demonstrated. The pulmonary vasculature is normal. The lungs are clear without focal | | airspace disease. Chronic left-sided rib fractures are noted. IMPRESSION:1. Status | | post left IJ placement. | | AM | | | |TECHNIQUE: Chest 1 view, AP view of the chest | | | |FINDINGS: The patient has a left IJ central venous catheter with the tip terminating near the atriocaval junction. The heart is normal in size without mediastinal widening. There i s no pneumothorax. No apical | |capping is demonstrated. The pulmonary | |vasculature is normal. The lungs are clear without focal airspace disease. Chronic left-s ided rib fractures are noted. | | | |IMPRESSION: | |1. Status post left IJ placement. | | | | | + + MRSA NAAT (09/14/2012 11:31 PM PST) + + | Specimen | + + | | + + + + + | Narrative | Performed At | + + + | [facility] | EXTERNAL LAB | | [place] performed [place] [facility] [place] [place] [address];[place] [address] MRSA PCR | | | NEGATIVE Testing performed at | | | [address];[place] [address] | | + + + + +---------+ + + | Performing | Address | City/State/Zipcode | Phone Number | | Organization | | | | + +---------+ + + | EXTERNAL LAB | | | | + +---------+ + + CT Angiogram Pulmonary w Contrast (09/14/2012 9:02 PM PST) + + | Specimen | + + | | + + + + + | Narrative | Performed At | + + + | [facility] CT CHEST PULMONARY EMBOLISM W CONTRAST 09/14/2012 8:47 | | | PM HISTORY: 61 years. Female. Rule out pulmonary embolus | | | TECHNIQUE: 1.5-mm axial images of the chest were acquired in the | | | arterial phase according to a CT angiography protocol. Coronal CT | | | angiographic MIP reconstructions were performed. IV contrast: 59 mL | | | IsoVue 370 COMPARISON: None. FINDINGS: CT ANGIOGRAM: Note: | | | These findings were discussed with the requesting clinician in the | | | emergency department by telephone at 2100 hrs. The pulmonary | | | arterial tree is well opacified. Multiple pulmonary emboli are | | | identified as follows: There is near occluding thrombus within left | | | and right main pulmonary arteries on the right there is thrombus | | | extending into the proximal portion of the upper and middle lobe | | | segments with a large amount of thrombus extending into the lower | | | lobe artery.. On the left the near occluding thrombus in the left | | | main pulmonary artery with a large volume of thrombus extending into | | | the left lower lobe branch. 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 No dissection, aneurysm or stenosis is | | | seen in the aorta or great vessels. No aneurysmal dilatation. No | | | evidence of dissection. Cardiomegaly is noted. No pericardial | | | abnormality is seen. No filling defects are seen in the chambers of | | | the heart to suggest clot or tumor. CT CHEST: The lungs are | | | well aerated. No acute airspace disease, parenchymal nodule, mass, | | | pleural effusion or pneumothorax is noted. No bronchiectasis is | | | seen. The thyroid is symmetric and shows no evidence of a solid or | | | cystic mass. No bulky adenopathy is seen in the lower karly | | | stations of the neck, axillary regions, mediastinum or hilar regions. | | | The thoracic esophagus is normal. No hiatal hernia is seen. | | | The muscles of the chest are symmetric. No focal atrophy or soft | | | tissue mass is seen. The osseous structures of the chest do not | | | demonstrate lytic or blastic lesions. In the upper abdomen the | | | visualized portions of the liver, spleen, pancreas, adrenal glands and | | | kidneys are normal in size, position, contour and attenuation. No | | | solid or cystic masses are seen in these organs. No upper abdominal | | | adenopathy is seen. The visualized portions of the stomach and | | | small bowel are normal. The patient is status post cholecystectomy. | | | IMPRESSION: 1. Large volume of bilateral pulmonary emboli as | | | described above. The requesting clinician is aware. | | | | | + + + + + | Procedure Note | + + | Brijesh, Rad Conversion - 03/09/2019 5:31 PM [facility] HOLGUIN CHEST PULMONARY EMBOLISM | | W CONTRAST09/14/2012 8:47 PM HISTORY:61 years. Female. Rule out pulmonary embolus | | TECHNIQUE:1.5-mm axial images of the chest were acquired in the arterial phase according | | to a CT angiography protocol. Coronal CT angiographic MIP reconstructions were | | performed.IV contrast: 59 mL IsoVue 370 COMPARISON:None. FINDINGS:CT ANGIOGRAM:Note: | | These findings were discussed with the requesting clinician in the emergency department | | by telephone at 2100 hrs. The pulmonary arterial tree is well opacified.Multiple | | pulmonary emboli are identified as follows: There is near occluding thrombus within | | left and right main pulmonary arteries on the right there is thrombus extending into the | | proximal portion of the upper and middle lobe segments with a large amount of thrombus | | extending into the lower lobe artery..On the left the near occluding thrombus in the | | left main pulmonary artery with a large volume of thrombus extending into the left lower | | lobe branch. 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 No | | dissection, aneurysm or stenosis is seen in the aorta or great vessels. No aneurysmal | | dilatation.No evidence of dissection.Cardiomegaly is noted. No pericardial abnormality | | is seen. No filling defects are seen in the chambers of the heart to suggest clot or | | tumor. CT CHEST: The lungs are well aerated. No acute airspace disease, parenchymal | | nodule, mass, pleural effusion or pneumothorax is noted. No bronchiectasis is seen. The | | thyroid is symmetric and shows no evidence of a solid or cystic mass. No bulky | | adenopathy is seen in the lower karly stations of the neck, axillary regions, | | mediastinum or hilar regions. The thoracic esophagus is normal. No hiatal hernia is | | seen. The muscles of the chest are symmetric. No focal atrophy or soft tissue mass is | | seen. The osseous structures of the chest do not demonstrate lytic or blastic lesions. | | In the upper abdomen the visualized portions of the liver, spleen, pancreas, adrenal | | glands and kidneys are normal in size, position, contour and attenuation. No solid or | | cystic masses are seen in these organs. No upper abdominal adenopathy is seen. The | | visualized portions of the stomach and small bowel are normal. The patient is status | | post cholecystectomy. IMPRESSION:1. Large volume of bilateral pulmonary emboli as | | described above. The requesting clinician is aware. | |The thyroid is symmetric and shows no evidence of a solid or cystic mass. | | | |No bulky adenopathy is seen in the lower karly stations of the neck, axillary regions, medi astinum or hilar regions. | | | | | |The thoracic esophagus is normal. No hiatal hernia is seen. | | | |The muscles of the chest are symmetric. No focal atrophy or soft tissue mass is seen. | | | |The osseous structures of the chest do not demonstrate lytic or blastic lesions. | | | |In the upper abdomen the visualized portions of the liver, spleen, pancreas, adrenal glands and kidneys are normal in size, position, contour and attenuation. No solid or cystic mass es are seen in these organs. No | |upper abdominal adenopathy is seen. | |The visualized portions of the stomach and small bowel are normal. The patient is status p ost cholecystectomy. | | | |IMPRESSION: | |1. Large volume of bilateral pulmonary emboli as described above. The requesting clinicia shwetha is aware. | | | | | + + documented in this encounter Visit Diagnoses + + | Diagnosis | + + | Bilateral pulmonary embolism (HCC) Other pulmonary embolism and infarction | + + | Nonspecific ST-T wave electrocardiographic changes Nonspecific abnormal | | electrocardiogram (ECG) (EKG) | + + | Obesity, unspecified | + + | Urinary tract infection, site not specified | + + | Transient hypotension Nonspecific low blood pressure reading | + + | Hypoxia Hypoxemia | + + | Elevated troponin Other abnormal blood chemistry | + + | Closed left ankle fracture Unspecified closed fracture of ankle | + + | Acute pulmonary embolism (HCC) Other pulmonary embolism and infarction | + + | Blunt head trauma Head injury, unspecified | + + | Hypotension, unspecified | + + | Syncope and collapse | + + documented in this encounter
--- OUTSIDE RECORDS SUMMARY | ~2020-03-19 | XMS | Encounter Summary ---
Demographics + + + | Address | [address] | | | [place] [address] | + + + | Home Phone | | + + + | Preferred Language | Unknown | + + + | Marital Status | | + + + | Mosque Affiliation | 1001 | + + + | Race | White | + + + | Ethnic Group | Not or | + + + Author + + + | Author | [facility] | | | and [place] | + + + | Organization | [facility] | | | and [place] | + + + | Address | Unknown | + + + | Phone | Unavailable | + + + Support + + + + + | Name | Relationship | Address | Phone | + + + + + | Syed Lanman | ECON | [address] | | | | | [place] | | | | | [address] | | + + + + + Care Team Providers + +------+ + | Care Grease And Tallow Pumper Name | Role | Phone | + +------+ + PCP | Unavailable | + +------+ + Encounter Details +--------+ + + + + | Date | Type | Department | Care Team | Description | +--------+ + + + + | 08/03/ | Hospital | [facility] | Conversion | Pain | | 2013 | Encounter | CONVERSION [address] | Transaction, | | | | | [address] | Provider Unknown | | | | | [place], [place] | [phone] | | | | | [phone] | | | | | | [phone] | | | +--------+ + + + + Social [...] + + documented as of this encounter Plan of Treatment Not on filedocumented as of this encounter Procedures + +--------+ + + + | Procedure Name | Priori | Date/Time | Associated Diagnosis | Comments | | | ty | | | | + +--------+ + + + | XR CHEST 1 VIEW | Routin | 09/14/2012 | | Results for this | | | e | 2:55 AM | | procedure are in the | | | | PST | | results section. | + +--------+ + + + documented in this encounter Results XR Chest 1 Vw (09/14/2012 2:55 AM PST) + + | Specimen | + + | | + + + + + | Narrative | Performed At | + + + | This is a non-reportable procedure without a radiologist report and | | | is used for image storage only | | + + + + + | Procedure Note | + + | Med Coley Wayne - 03/02/2019 11:39 AM PDT This is a non-reportable procedure | | without a radiologist report and isused for image storage only | + + documented in this encounter Visit Diagnoses + + | Diagnosis | + + | Pain Generalized pain | + + documented in this encounter"
--- OUTSIDE RECORDS SUMMARY | ~2020-03-19 | XMS | Clinical Summary ---
Demographics + + + | Address | [address] | | | [place] [address] | + + + | Home Phone | | + + + | Preferred Language | Unknown | + + + | Marital Status | | + + + | Presybeterian Affiliation | 1001 | + + + | Race | White | + + + | Ethnic Group | Not or | + + + Author + + + | Author | [facility] | | | and [place] | + + + | Organization | [facility] | | | [...] [place] | | | | | [address] | | + + + + + Care Team Providers + +------+ + | Care Roof Truss Machine Tender Name | Role | Phone | + +------+ + | Dale Watkins DO | PCP | | + +------+ + Allergies Not on File Medications Not on file Active Problems Not on file Immunizations + + + + | Name | Administration Dates | Next Due | + + + + | PNEUMOCOCCAL | 09/15/2012 | | | POLYSACCHARIDE | | | | 23-VALENT (PPSV23) | | | + + + + Social History + [...] on file | | + + + Last Filed Vital Signs Not on file Plan of Treatment + + + + + | Health Maintenance | Due Date | Last | Comments | | | | Done | | + + + + + | Vaccine: | | | | | Dtap/Tdap/Td (1 - | 2 | | | | Tdap) | | | | + + + + + | Vaccine: Zoster (1 | | | | | of 2) | 3 | | | + + + + + | Breast Cancer | | | | | Screening | 8 | | | + + + + + | Vaccine: | | 09/16/19 | | | Pneumococcal 65+ (1 | 8 | 13 | | | of 1 - PPSV23) | | | | + + + + + | Vaccine: Influenza | | | | | (#1) | 0 | | | + + + + + Results Not on filefrom Last 3 Months"
[~2020-03-19 14:34] MED LIST: BENICAR20 MG PO; CYCLOBENZAPRINE5 MG PO; MEDROL4 MG PO; NORCO 7.5-3251 EACH PO; OMEPRAZOLE20 MG PO; PAXIL20 MG PO
[2020-03-19] MEDS ORDERED: HYDROCODONE-ACE15 M3 PO (19:34)
[2020-03-19] MEDS ORDERED: PROMETHAZI6.25 MG/5 PO (19:34)
== END 2020-03-19 19:56 | disposition home or self-care (01) ==
LOC: ED 14:34
DX: R13.10 Dysphagia, unspecified (principal); G89.18 Other acute postprocedural pain; F41.9 Anxiety disorder, unspecified; I10 Essential (primary) hypertension; K21.9 Gastro-esophageal reflux disease without esophagitis; Z88.5 Allergy status to narcotic agent; Z79.899 Other long term (current) drug therapy
CPT/HCPCS: 71045; 71260; 74160; 74177; 80053; 83690; 83735; 85025; 99284-25; J3010; J7030; Q9967